=== PATIENT | male | born 1945 | race Caucasian/White ===

== ENCOUNTER 2017-08-05 10:04 | Emergency (ER) | payer MEDICARE, MEDICAID ==
[~2017-08-05] VITALS: Ht 160 cm; Wt 60.0 kg
[~2017-08-05 10:04] MED LIST: AMOXICILLIN500 MG PO; ATORVASTATIN CA40 MG PO; CEPHALEXIN500 MG PO; CIPROFLOXACN500 MG PO; FLAGYL500 MG PO; IBUPROFEN200 MG PO; LEVOTHYROXIN50 MC1 PO; LEVOTHYROXIN75 MC1 PO; LISINOP/HCTZ1 TAB PO; MEDDOSEPAK PO; NO; PERCOCET 5/325M1 TAB PO; PLAVIX75 MG PO; TAMSULOSIN HCL0.4 MG PO; VENTOLIN HF1 IN; VITAMIN B-121000 MCG PO; ZOFRAN ODT8 MG SL
[2017-08-05 10:56] LABS: URINE BILIRUBIN - DIPSTICK NEGATIVE (NEGATIVE); URINE BLOOD DIPSTICK NEGATIVE (NEGATIVE); URINE CLARITY CLEAR; URINE COLOR YELLOW; URINE GLUCOSE - DIPSTICK NEGATIVE (NEGATIVE); URINE KETONE NEGATIVE (NEGATIVE); URINE LEUK ESTERASE TRACE (NEGATIVE); URINE NITRITE - DIPSTICK NEGATIVE (Negative); URINE PROTEIN - DIPSTICK NEGATIVE (NEG-TRACE)
[2017-08-05 11:00] LABS: ALBUMIN 4.4 g/dL (3.2-5.0); ALKALINE PHOSPHATASE 90 u/l (38-126); ANION GAP 17 (6-22 (CALC)); BILIRUBIN, TOTAL 1.1 mg/dL (0.0-1.4); BUN 15 mg/dL (8-23); BUN/CREATININE RATIO 10 (12-20 (CALC)); CARBON DIOXIDE 23 mmol/l (22-30); CHLORIDE 105 mmol/l (95-108); CREATININE 1.5 mg/dL (0.7-1.3); GFR 46 ML/MIN (>=60 (CALC)); GFR FOR AFR.AMER. 56 ML/MIN (>=60 (CALC)); GLUCOSE 100 mg/dL (82-115); POTASSIUM 3.8 mmol/l (3.5-5.1); SGOT/AST 22 u/l (19-48); SGPT/ALT 33 u/l (11-66); SODIUM 141 mmol/l (137-146); TOTAL PROTEIN 8.1 g/dL (6.3-8.2)
[2017-08-05 11:08] LABS: HEMATOCRIT 48.2 % (39.0-50.0); HEMOGLOBIN 16.7 g/dl (14.0-18.0); IMMATURE GRANULOCYTES 1.2 % (0.0-1.0); MEAN CELL VOLUME 88.8 fL CALC (80.0-100.0); MEAN CORPUSCULAR HGB 30.8 pG CALC (26.0-32.0); MEAN CORPUSCULAR HGB CONC 34.6 g/L CALC (32.0-36.0); NEUT# 5.87 thou/uL (1.82-7.42); RED BLOOD COUNT 5.43 mill/uL (4.70-6.10); RED CELL DISTRI WIDTH 13.1 % (11.5-15.5)
[2017-08-05 11:10] LABS: BARBITURATES NEGATIVE (NEGATIVE); COCAINE NEGATIVE (NEGATIVE); METHADONE NEGATIVE (NEGATIVE); OXCYCODONE NEGATIVE (NEGATIVE); TETRAHYDROCANNABIONOL NEGATIVE (NEGATIVE); TRICYLIC ANTIDEPRESSANTS NEGATIVE (NEGATIVE)
[2017-08-05 11:12] LABS: MYOGLOBIN 89 ng/mL (0 - 121)
[2017-08-05] MEDS ORDERED: MUCINEX600 MG PO (15:48)
[2017-08-05] MEDS ORDERED: DOXYCYC MONO100 M1 PO (15:48)
[2017-08-05 15:54] VITALS: BP 164/85
== END 2017-08-05 16:06 | disposition home or self-care (01) ==
LOC: ED 10:04
PROVIDERS: Emergency Medicine
DX: T67.5XXA Heat exhaustion, unspecified, initial encounter (principal); J20.9 Acute bronchitis, unspecified; I10 Essential (primary) hypertension; F79 Unspecified intellectual disabilities; I69.931 Monoplegia of upper limb following unspecified cerebrovascular disease affecting right dominant side; X30.XXXA Exposure to excessive natural heat, initial encounter

== ENCOUNTER 2017-08-11 21:44 | Emergency (ER) | payer MEDICARE, MEDICAID ==
[~2017-08-11] VITALS: Ht 160 cm; Wt 60.0 kg
[~2017-08-11 21:44] MED LIST changes: +DOXYCYC MONO100 M1 PO; +MUCINEX600 MG PO
[2017-08-11 22:35] LABS: HEMATOCRIT 46.3 % (39.0-50.0); HEMOGLOBIN 15.3 g/dl (14.0-18.0); IMMATURE GRANULOCYTES 0.7 % (0.0-1.0); MEAN CELL VOLUME 91.9 fL CALC (80.0-100.0); MEAN CORPUSCULAR HGB 30.4 pG CALC (26.0-32.0); NEUT# 7.29 thou/uL (1.82-7.42); RED BLOOD COUNT 5.04 mill/uL (4.70-6.10); RED CELL DISTRI WIDTH 13.2 % (11.5-15.5)
[2017-08-11 22:48] LABS: ALBUMIN 3.8 g/dL (3.2-5.0); ALKALINE PHOSPHATASE 90 u/l (38-126); ANION GAP 13 (6-22 (CALC)); BILIRUBIN, TOTAL 1.1 mg/dL (0.0-1.4); BUN 15 mg/dL (8-23); BUN/CREATININE RATIO 10 (12-20 (CALC)); CALCIUM 8.7 mg/dL (8.4-10.2); CARBON DIOXIDE 27 mmol/l (22-30); CHLORIDE 105 mmol/l (95-108); CREATININE 1.4 mg/dL (0.7-1.3); GFR 50 ML/MIN (>=60 (CALC)); GFR FOR AFR.AMER. > 60 ML/MIN (>=60 (CALC)); GLUCOSE 94 mg/dL (82-115); POTASSIUM 3.8 mmol/l (3.5-5.1); SGOT/AST 21 u/l (19-48); SGPT/ALT 26 u/l (11-66); SODIUM 141 mmol/l (137-146); TOTAL PROTEIN 7.2 g/dL (6.3-8.2)
[2017-08-12 00:41] LABS: URINE BILIRUBIN - DIPSTICK NEGATIVE (NEGATIVE); URINE BLOOD DIPSTICK NEGATIVE (NEGATIVE); URINE CLARITY SLIGHT CLOUDY; URINE COLOR YELLOW; URINE GLUCOSE - DIPSTICK NEGATIVE (NEGATIVE); URINE KETONE NEGATIVE (NEGATIVE); URINE LEUK ESTERASE NEGATIVE (NEGATIVE); URINE NITRITE - DIPSTICK NEGATIVE (Negative); URINE PROTEIN - DIPSTICK NEGATIVE (NEG-TRACE)
[2017-08-12 01:00] VITALS: BP 145/66
[2017-08-12] MEDS ORDERED: ORPHENADRINE100 MG PO (03:29)
[2017-08-12] MEDS ORDERED: PERCOCET 5/325M1 TAB PO (03:29)
== END 2017-08-12 07:12 | disposition home or self-care (01) ==
LOC: ED 21:44
PROVIDERS: Emergency Medicine
DX: G89.29 Other chronic pain (principal); M54.5 Low back pain; N28.9 Disorder of kidney and ureter, unspecified; I10 Essential (primary) hypertension; R05 Cough; M62.830 Muscle spasm of back

== ENCOUNTER 2018-11-20 11:19 | Inpatient (IN) | payer MEDICARE, MEDICAID ==
[~2018-11-20] VITALS: Ht 162.6 cm; Wt 57.0 kg
[~2018-11-20 11:19] MED LIST changes: +ORPHENADRINE100 MG PO
--- NOTE | 2018-11-20 11:19 | NUR ---
BOARD MACHINE SET UP OPERATOR CALLED PRIOR TO CHECKING IN TO ER. PATIENT STATES INCREASED RIGHT SIDED WEAKNESS WITH MULTIPLE FALLS. PATIENT HAS MILD ASPHASIA, RIGHT UPPER EXREMITY ATAXIA AND SLIGHT INABILITY TO FOLLOW COMMANDS. PATIENT HAS HX OF CVA X2 AND DEVELOPMENTAL DELAY PER MEDICAL HX. PATIENT ALERT AND ORIENTED TIMES 3 AND PHYSICIAN AT BEDSIDE FOR EVAL
--- NOTE | 2018-11-20 11:23 | NUR ---
PT RESTING IN BED WITH EYES CLOSED. PT REMAINS AFEBRILE. DENIES ANY PAIN OR DISCOMFORT. IVF INFUSING WITHOUT DIFFICULTY. RETAIL PLANNER IN PLACE. CALL LIGHT WITHIN REACH. WILL CONTINUE TO MONITOR.
--- NOTE | 2018-11-20 11:25 | NUR ---
PT STATES HE STARTED TO FALL AND BLOCKED HIMSELF FROM HITTING FLOOR WITH HANDS, DENIES ANY BACK PAIN, DENIES ANY NECK PAIN, [facility] SCALE DONE BY STAFF WITH A 1
[2018-11-20 11:46] LABS: HEMATOCRIT 47.8 % (39.0-50.0); HEMOGLOBIN 16.2 g/dl (14.0-18.0); IMMATURE GRANULOCYTES 0.5 % (0.0-5.0); MEAN CELL VOLUME 89.2 fL CALC (80.0-100.0); MEAN CORPUSCULAR HGB 30.2 pG CALC (26.0-32.0); MEAN CORPUSCULAR HGB CONC 33.9 g/L CALC (32.0-36.0); NEUT# 5.77 thou/uL (1.82-7.42); RED BLOOD COUNT 5.36 mill/uL (4.70-6.10); RED CELL DISTRI WIDTH 13.2 % (11.5-15.5)
[2018-11-20 11:54] LABS: ANION GAP 14 (6-22 (CALC)); BUN 12 mg/dL (8-23); BUN/CREATININE RATIO 9 (12-20 (CALC)); CARBON DIOXIDE 24 mmol/l (22-30); CHLORIDE 106 mmol/l (95-108); CREATININE 1.4 mg/dL (0.7-1.3); GFR 50 ML/MIN (>=60 (CALC)); GFR FOR AFR.AMER. 60 ML/MIN (>=60 (CALC)); POTASSIUM 3.8 mmol/l (3.5-5.1); SODIUM 140 mmol/l (137-146)
--- NOTE | 2018-11-20 12:10 | NUR ---
negative ct scan result0
--- NOTE | 2018-11-20 13:02 | NUR ---
PTS [facility] SCALE REMAINS A ZERO, VITAL SIGNS STABLE, B/P 169/90, HR 78,
--- NOTE | 2018-11-20 14:38 | NUR ---
PT UNABLE TO REMEMBER ALL OF HIS MEDICATIONS OR DOSAGES.
--- NOTE | 2018-11-20 15:00 | NUR ---
PT ARRIVED ON FLOOR VIA W/C ACCOMPANIED BY GI[facility] ER STAFF; PT TRF FROM W/C TO BED WITH STEADY GAIT; VITALS OBTAINED BY AIR CONDITIONING TECHNICIAN; RESP EVEN AND UNLABORED; TELE IN PLACE; #20LAC S/L SITE APPEARS HEALTHY; PT ORIENT TO ROOM AND CALL WARD SYSTEM; SAFETY PRECAUTION REINFORCE; PT VERBALIZE UNDERSTANDING;
--- NOTE | 2018-11-20 15:06 | NUR ---
PT REPORT GIVEN AND TAKEN TO FLOOR PER W/C AND TELEMENTRY PT REMAINS ALERT/ORIENTED PER NORMAL FOR PT. NO NOTICEABLE WEAKNESS TO EITHER SIDE, TRANSFERRED ON OWN FROM W/C TO BED.
[2018-11-20 15:25] VITALS: BP 138/94
--- NOTE | 2018-11-20 16:58 | NUR ---
PT LAYING IN BED C/O BEING COLD, WARM BLANKET PROVIDED; PT VOICE NO OTHER CONCERNS; SAFETY PRECAUTION REINFORCE; CALL WARD IN REACH.
--- NOTE | 2018-11-20 18:46 | NUR ---
PT COMPLAINED OF BEING COLD; TEMP 101 TYMPANIC; CALLED [facility], ORDER UA, BLOOD CULTURE; WHEN THAT'S OBTAIN THEN TREAT TEMP WITH TYLENOL; FAX ORDER TO ; LAB AT BED SIDE TO OBTAIN BLOOD CULTURE; COOL WASH CLOTH APPLY TO FOREHEAD AND UNDERARM; PT INSTRUCTED TO CALL FOR ASSISTANCE;
[2018-11-20 19:00] VITALS: BP 116/78
--- NOTE | 2018-11-20 19:30 | NUR ---
REPORT FROM BERTHA RUGGIERO. PT RESTING IN BED. ALERT AND ORIENTED. STATES " I DON'T FEEL GOOD". PT TEMP 101.3. REMOVED HEAVY BLANKETS AND TURNED DOWN AIR. APAP ADMINISTERED AT THIS TIME. PT DENIES ANY PAIN. IV SITE APPEARS HEALTHY WITH IVF INFUSING WITHOUT DIFFICULTY. UA SAMPLE OBTAINED AND SENT TO LAB. DISCUSSED POC. PT VERBALIZED UNDERSTANDING. ENCOURAGED PT TO CALL FOR NEEDS. CALL LIGHT WITHIN REACH. WILL CONTINUE TO MONITOR.
[2018-11-20 21:37] LABS: URINE BILIRUBIN - DIPSTICK NEGATIVE (NEGATIVE); URINE BLOOD DIPSTICK LARGE (NEGATIVE); URINE COLOR YELLOW; URINE GLUCOSE - DIPSTICK NEGATIVE (NEGATIVE); URINE KETONE NEGATIVE (NEGATIVE); URINE LEUK ESTERASE NEGATIVE (NEGATIVE); URINE NITRITE - DIPSTICK NEGATIVE (Negative); URINE PH 6.5 (4.5-8.0); URINE PROTEIN - DIPSTICK NEGATIVE (NEG-TRACE); URINE SPECIFIC GRAVITY <=1.005; URINE UROBILINOGEN - DIPSTICK 0.2 E.U./dL (0.2)
[2018-11-20 21:41] LABS: URINE RBC TNTC RBC/hpf (0-5); URINE SQUAMOUS EPITHELIAL CELL FEW EPI/hpf (0-FEW)
--- NOTE | 2018-11-20 23:23 | NUR ---
PT RESTING IN BED WITH EYES CLOSED. PT REMAINS AFEBRILE. DENIES ANY PAIN OR DISCOMFORT. IVF INFUSING WITHOUT DIFFICULTY. DRILLING ASSISTANT IN PLACE. CALL LIGHT WITHIN REACH. WILL CONTINUE TO MONITOR.
[2018-11-20 23:55] VITALS: BP 98/62
[2018-11-21] VITALS (8 sets, daily range): BP systolic 95–130; BP diastolic 60–73
--- NOTE | 2018-11-21 03:26 | NUR ---
PT RESTING IN BED. EASILY AROUSED. PT SPILLED URINAL IN BED. LINENS CHANGED AND PARTIAL BED BATH PROVIDED AT THIS TIME. PT DENIES ANY PAIN. PT TEMP 99.8 AT THIS TIME. TURNED AIR DOWN. WILL CONTINUE TO MONITOR.
--- NOTE | 2018-11-21 07:05 | NUR ---
REPORT RECEIVED FROM BAHMAN ALBRIGHT;PT APPEARS TO BE RESTING IN SEMI FOWLERS POSITION;INTRODUCED SELF TO PT AND POC DISCUSSED;PT ALERT AND ORIENTED X3;RESPIRATIONS EVEN AND UNLABORED ON RA;TELE MONITORING IN PLACE;IV FLUIDS CONTINUE TO INFUSE WELL TO LAC;PT DENIES ANY CURRENT NEEDS AND IS ENCOURAGED TO CALL FOR ASSISTANCE IF NEEDED;FALL PRECAUTIONS IN PLACE WITH BED IN THE LOWEST POSITION AND CALL LIGHT IN REACH;WILL CONTINUE TO MONITOR
--- NOTE | 2018-11-21 09:10 | NUR ---
PT RESTING IN SEMI FOWLERS POSITION;ALERT AND ORIENTED X3;VS OBTAINED AND ASSESSMENT COMPLETED;PT DENIES ANY CURRENT PAIN OR DISCOMFORTS,PAIN SCALE AND REPORTING EDUCATED;RESPIRATIONS EVEN AND UNLABORED ON RA,CLEAR LUNG SOUNDS NOTED;ABDOMEN SOFT ON PALPATION AND ACTIVE IN ALL 4 QUADRANTS;STRONG PEDAL PULSES;#20G TO LAC INFUSING NS @ 80ML/HR,SITE APPEARS HEALTHY;TELE MONITORING IN PLACE;PT DENIES ANY CURRENT NEEDS AND IS ENCOURAGED TO CALL FOR ASSISTANCE IF NEEDED;CALL LIGHT IN REACH;WILL CONTINUE TO MONITOR
[2018-11-21 09:16] LABS: HEMATOCRIT 42.7 % (39.0-50.0); HEMOGLOBIN 14.4 g/dl (14.0-18.0); IMMATURE GRANULOCYTES 1.2 % (0.0-5.0); MEAN CELL VOLUME 91.2 fL CALC (80.0-100.0); MEAN CORPUSCULAR HGB 30.8 pG CALC (26.0-32.0); MEAN CORPUSCULAR HGB CONC 33.7 g/L CALC (32.0-36.0); NEUT# 24.68 thou/uL (1.82-7.42); RED BLOOD COUNT 4.68 mill/uL (4.70-6.10); RED CELL DISTRI WIDTH 13.7 % (11.5-15.5)
[2018-11-21 09:50] LABS: CHOLESTEROL HDL RATIO 2.4 (<4.4 (CALC))
[2018-11-21 09:51] LABS: CREATININE 1.4 mg/dL (0.7-1.3); MAGNESIUM 1.8 mg/dL (1.6-2.3); POTASSIUM 3.5 mmol/l (3.5-5.1)
--- NOTE | 2018-11-21 10:00 | NUR ---
FLU SWAB SENT TO LAB PER ORDER.
--- NOTE | 2018-11-21 11:01 | NUR ---
Spoke with patient about his listed home medications. Patient confirmed and verbalized that all of his home medications were correct. Patient had no questions or concerns at this time. Advised patient to contact pharmacy if he has any questions or concerns.
--- NOTE | 2018-11-21 12:15 | NUR ---
PT APPEARS TO BE SLEEPING IN SEMI FOWLERS POSITION;RESPIRATIONS EVEN AND UNLABORED ON RA;NO S/S OF DISTRESS NOTED;TELE MONITORING IN PLACE;IV FLUIDS CONTINUE TO INFUSE TO RAC WITH EASE;FALL PRECAUTIONS IN PLACE WITH CALL LIGHT IN REACH;WILL CONTINUE TO MONITOR
--- NOTE | 2018-11-21 14:16 | NUR ---
ORTHOSTATIC BP PRESSURES OBTAINED BP SUPINE 115/69 HR 69.SITTING 114/63 HR 82. STANDING 125/73 HR 88.
--- NOTE | 2018-11-21 15:24 | NUR ---
PT TRANSFERRED TO [facility] VIA WHEELCHAIR IN STABLE CONDITION.
--- NOTE | 2018-11-21 15:44 | NUR ---
PT ARRIVED BACK TO FLOOR VIA WHEELCHAIR IN STABLE CONDITION.
--- NOTE | 2018-11-21 16:20 | NUR ---
PT RESTING IN SEMI FOWLERS POSITION;PT DENIES ANY CURRENT PAIN;RESPIRATIONS EVEN AND UNLABORED ON RA;IV FLUIDS CONTINUE TO INFUSE TO LAC @ 80ML/HR WITH EASE;TELE MONITORING IN PLACE;PT EDUCATED ON THE NEED FOR A SPUTUM SAMPLE AND VERBALIZES UNDERSTANDING;ENCOURAGED PT TO CALL FOR ASSISTANCE IF NEEDED;FALL PRECAUTIONS IN PLACE WITH CALL LIGHT IN REACH;WILL CONTINUE TO MONITOR
--- NOTE | 2018-11-21 19:24 | NUR ---
BEDSIDE REPORT RECEIVED FROM BAHMAN MONTERROSO. PT RESTING IN BED WITH EYES CLOSED AND LIGHTS OFF. AWAKENED SPONTANEOUSLY FOR INITIAL VS. DENIES PAIN. RESPIRATIONS EVEN AND UNLABORED ON ROOM AIR. PLAN OF CARE REVIEWED. PT ENCOURAGED TO VERBALIZE CONCERNS. STATES UNDERSTANDING. SAFETY MEASURES IN PLACE. CALL LIGHT WITHIN REACH.
[2018-11-22] VITALS (10 sets, daily range): BP systolic 107–153; BP diastolic 64–98
--- NOTE | 2018-11-22 00:40 | NUR ---
PT ASLEEP AT THIS TIME WITH NO SIGNS OF DISTRESS. RESPIRATIONS EVEN AND UNLABORED ON ROOM AIR. IV FLUIDS INFUSING WITHOUT DIFFICULTY; IV SITE APPEARS HEALTHY. PT REMAINS ONE PERSON ASSIST AND AMBUALTORY. VS STABLE. SAFETY MEASURES IN PLACE. CALL LIGHT WITHIN REACH.
--- NOTE | 2018-11-22 02:58 | NUR ---
PT AWAKE WITH LIGHT ON. ONLY REQEUST IS FOR SODA. NO CONCERNS AT THIS TIME.
--- NOTE | 2018-11-22 05:16 | NUR ---
IV DISLODGED AND NEW SITE STARTED TO RFA; PT TOLERATED WELL. NO ACUTE CHANGED IN CONDITION THROUGHOUT THE NIGHT. NO REQUESTS OR CONCERNS AT THIS TIME. SAFETY MEASURES IN PLACE. CALL LIGHT WITHIN REACH.
[2018-11-22 05:38] LABS: HEMATOCRIT 40.3 % (39.0-50.0); HEMOGLOBIN 13.5 g/dl (14.0-18.0); IMMATURE GRANULOCYTES 0.5 % (0.0-5.0); MEAN CELL VOLUME 92.2 fL CALC (80.0-100.0); MEAN CORPUSCULAR HGB 30.9 pG CALC (26.0-32.0); MEAN CORPUSCULAR HGB CONC 33.5 g/L CALC (32.0-36.0); NEUT# 11.81 thou/uL (1.82-7.42); RED BLOOD COUNT 4.37 mill/uL (4.70-6.10); RED CELL DISTRI WIDTH 13.7 % (11.5-15.5)
[2018-11-22 05:50] LABS: ANION GAP 10 (6-22 (CALC)); BUN 15 mg/dL (8-23); BUN/CREATININE RATIO 11 (12-20 (CALC)); CARBON DIOXIDE 25 mmol/l (22-30); CHLORIDE 108 mmol/l (95-108); CREATININE 1.3 mg/dL (0.7-1.3); GFR 54 ML/MIN (>=60 (CALC)); GFR FOR AFR.AMER. > 60 ML/MIN (>=60 (CALC)); SODIUM 139 mmol/l (137-146)
--- NOTE | 2018-11-22 07:00 | NUR ---
REPORT RECIEVED FROM OSVALDO WISE. PT RESTING IN BED, NO SIGNS OR SYMPTOMS OF DISTRESS. SAFETY PRECAUTIONS IN PLACE. WILL CONTINUE TO MONITOR.
--- NOTE | 2018-11-22 08:00 | NUR ---
PT RESTING IN BED. ALERT AND ORIENTED. VITAL SIGNS OBTAINED AND ASSESSMENT COMPLETED. PT DENIES ANY PAIN OR DISCOMFORT. RESPIRATIONS EVEN AND UNLABORED ON ROOM AIR. LUNGS SOUND CLEAR. TELE MONITORING IN PLACE. IV # 20 TO THE RT FOREARM, INFUSING NS 80ML/HR, SITE APPEARS HEALTHY. PEDAL PULSES STRONG. PT ENCOURAGED TO USE CALL WARD IF NEEDS SHOULD ARISE. SAFETY PRECAUTIONS IN PLACE. CALL LIGHT WITHIN REACH. WILL CONTINUE TO MONITOR.
--- NOTE | 2018-11-22 09:24 | NUR ---
PT AMBULATING THE HALLWAYS WITH A STEADY GAIT AND PHYSICAL THERAPY.
--- NOTE | 2018-11-22 12:06 | NUR ---
PATIENT STATING THAT HE NO LONGER WANTS TO GO TO REHAB. HE REPORTS THAT HE HAS PNEUMONIA AND DID NOT HAVE A STROKE. HE IS FEELING MORE LIKE HIS NORMAL SELF TODAY AND IS ABLE TOAMB IN ROOM INDEP. GT ASSESSED AMB WITHOUT A.D. 150 WITH GOOD BALANCE AND IMPROVED STEP LENNGTH AND HEIGHT. PATIENT WILL BE SAFE TO RETURN HOME AND NO FURTHER P.T. INTERVENTION IS INDICATED. WILL ONLY MONITOR IF ANY CHANGES IN STATUS.
--- NOTE | 2018-11-22 12:30 | NUR ---
DR VELEZ AT PT BEDSIDE DISCUSSING PLAN OF CARE.
--- NOTE | 2018-11-22 14:19 | NUR ---
PT SITTING ON THE SIDE ON THE BED. NO SIGNS OR SYMPTOMS OF DISTRESS. NO COMPLAINTS OF PAIN OR DISCOMFORT. SAFETY PRECAUTIONS IN PLACE. CALL LIGHT WITHIN REACH. WILL CONTINUE TO MONITOR.
--- NOTE | 2018-11-22 16:00 | NUR ---
PT RESTING IN BED, NO SIGNS OR SYMPTOMS OF DISTRESS. SAFETY PRECAUTIONS IN PLACE. CALL LIGHT WITHIN REACH. WILL CONTINUE TO MONITOR.
--- NOTE | 2018-11-22 21:05 | NUR ---
ASSESSMENT IS COMPLETED: PT IS RELAXING IN BED WITH NO DISTRESS NOTED. IV SITE IS FREE FROM REDNESS OR EDEMA. HR IS REG,PULSES ARE STRONG X4, ABD IS SOFT WITH ACTIVE BS. TELE MONITOR IN PLACE. CONTINUE TO OBSERVE AND MONITOR.
--- NOTE | 2018-11-22 22:15 | NUR ---
PT TOOK TELE MONITOR OFF , NOT WANTING BACK ON. INFORMING THE DR TO SEE IF WE CAN GET IT DISCONTNUED.
--- NOTE | 2018-11-22 22:21 | NUR ---
STATED" CAN DISCONTINUE THE TELE MONITOR. "
--- NOTE | 2018-11-23 | NUR ---
PT IS RESTING IN BED WITH NO DISTRESS NOTED. IV SITE IS FREE FROM REDNESS OR EDEMA. NO TELE AT THIS TIME.
[2018-11-23 04:30] VITALS: BP 138/83
[2018-11-23 04:35] VITALS: BP 146/90
[2018-11-23 04:40] VITALS: BP 153/98
--- NOTE | 2018-11-23 04:45 | NUR ---
PT IS RELAXING IN BED WITH NO DISTRESS NOTED. IV SITE IS FREE FROM REDNESS OR EDEMA.
[2018-11-23 05:43] LABS: ALBUMIN 3.3 g/dL (3.2-5.0); ALKALINE PHOSPHATASE 79 u/l (38-126); ANION GAP 11 (6-22 (CALC)); BILIRUBIN, TOTAL 0.5 mg/dL (0.0-1.4); BUN 13 mg/dL (8-23); BUN/CREATININE RATIO 12 (12-20 (CALC)); CARBON DIOXIDE 25 mmol/l (22-30); CHLORIDE 108 mmol/l (95-108); CREATININE 1.1 mg/dL (0.7-1.3); GFR > 60 ML/MIN (>=60 (CALC)); GFR FOR AFR.AMER. > 60 ML/MIN (>=60 (CALC)); MAGNESIUM 2.2 mg/dL (1.6-2.3); POTASSIUM 3.9 mmol/l (3.5-5.1); SGOT/AST 26 u/l (19-48); SODIUM 140 mmol/l (137-146); TOTAL PROTEIN 6.4 g/dL (6.3-8.2)
[2018-11-23 05:45] LABS: HEMATOCRIT 43.9 % (39.0-50.0); IMMATURE GRANULOCYTES 0.5 % (0.0-5.0); MEAN CELL VOLUME 89.8 fL CALC (80.0-100.0); MEAN CORPUSCULAR HGB 30.7 pG CALC (26.0-32.0); MEAN CORPUSCULAR HGB CONC 34.2 g/L CALC (32.0-36.0); NEUT# 6.46 thou/uL (1.82-7.42); RED BLOOD COUNT 4.89 mill/uL (4.70-6.10); RED CELL DISTRI WIDTH 13.6 % (11.5-15.5)
--- NOTE | 2018-11-23 07:00 | NUR ---
REPORT RECIVED FROM BAHMAN STEEN. PT RESTING BED, NO SIGNS OR SYMPTOMS OF DISTRESS. SAFETY PRECAUTIONS IN PLACE. WILL CONTINUE TO MONITOR.
[2018-11-23 08:00] VITALS: BP 135/82
--- NOTE | 2018-11-23 08:00 | NUR ---
PT SITTING IN RECLINER AT BEDSIDE. ALERT AND ORIENTED. VS OBTAINED AND ASSESSMENT COMPLETED. RESPIRATIONS EVEN AND UNLABORED, ON RA. LUNGS SOUND CLEAR. PEDAL PULSES STRONG. SKIN INTACT. IV #20 IN RT FOREARM, APPEARS HEALTHY. PT DENIES ANY PAIN OR DISCOMFORT AT THIS TIME. SAFETY PRECAUTIONS IN PLACE. CALL LIGHT WITHIN REACH. WILL CONTINUE TO MONITOR.
--- NOTE | 2018-11-23 12:00 | NUR ---
PT RESTING IN BED. NO SIGNS OR SYMPTOMS OF DISTRESS. RESPIRATIONS EVEN AND UNLABORED, ON RA. NO SIGNS OR SYMPTOMS OF DISTRESS. SAFETY PRECAUTIONS IN PLACE. CALL LIGHT WITHIN REACH. WILL CONTIUE TO MONITOR.
[2018-11-23] MEDS ORDERED: DOXYCYCL HYC100 MG PO (13:57)
--- NOTE | 2018-11-23 14:45 | NUR ---
PT EDUCATED ON HOME HEALTH ORDER FOR DISCHARGE, PT REFUSED HOME HEALTH.
--- NOTE | 2018-11-23 15:00 | NUR ---
Discharge instructions given. Patient verbalizes understanding of same. Discharged in stable condition via Wheelchair to Home with *Other. All belongings sent with pt. Pt reported that he wanted to walk home. Nurse informed that we could call a ride for him or get a taxi set up for discharge. Pt refused and insisted he walk home which was approx a block away.Pt transported to [facility] via wheelchair in stable condition accompanied by volunteer.
== END 2018-11-23 15:07 | disposition home or self-care (01) | DRG 194 ==
LOC: ED 11:19 → ED-I 13:19 → MS2 13:30 → ED 13:30 → MS2 13:30
PROVIDERS: Family Medicine; Internal Medicine Nephrology; Nurse Practitioner Family; ADMIT Internal Medicine; ATTEND Internal Medicine
DX: J18.9 Pneumonia, unspecified organism (principal); I69.951 Hemiplegia and hemiparesis following unspecified cerebrovascular disease affecting right dominant side; I16.0 Hypertensive urgency; I12.9 Hypertensive chronic kidney disease with stage 1 through stage 4 chronic kidney disease, or unspecified chronic kidney disease; N18.3 Chronic kidney disease, stage 3 (moderate); E78.5 Hyperlipidemia, unspecified; I69.918 Other symptoms and signs involving cognitive functions following unspecified cerebrovascular disease; N40.0 Benign prostatic hyperplasia without lower urinary tract symptoms; Z23 Encounter for immunization; Z87.891 Personal history of nicotine dependence
CPT/HCPCS: G0378; J1650

== ENCOUNTER 2020-05-06 15:37 | Emergency (ER) | payer MEDICARE, MEDICAID ==
[~2020-05-06] VITALS: Ht 162.6 cm; Wt 70.0 kg
[~2020-05-06 15:37] MED LIST changes: +DOXYCYCL HYC100 MG PO
[2020-05-06 16:14] LABS: HEMATOCRIT 38.6 % (39.0-50.0); HEMOGLOBIN 13.1 g/dl (14.0-18.0); IMMATURE GRANULOCYTES 0.6 % (0.0-5.0); MEAN CORPUSCULAR HGB 32.4 pG CALC (26.0-32.0); MEAN CORPUSCULAR HGB CONC 33.9 g/dL CAL (32.0-36.0); NEUT# 7.05 thou/uL (1.82-7.42); RED BLOOD COUNT 4.04 mill/uL (4.70-6.10); RED CELL DISTRI WIDTH 14.6 % (11.5-15.5)
[2020-05-06 16:16] LABS: MEAN CELL VOLUME 95.5 fL CALC (80.0-100.0)
[2020-05-06 16:32] LABS: ALKALINE PHOSPHATASE 85 u/l (38-126); AMYLASE 40 u/l (30-110); ANION GAP 11 (6-22 (CALC)); BUN 13 mg/dL (8-23); BUN/CREATININE RATIO 10 (12-20 (CALC)); CARBON DIOXIDE 24 mmol/l (22-30); CHLORIDE 102 mmol/l (95-108); CREATININE 1.4 mg/dL (0.7-1.3); GFR 50 ML/MIN (>=60 (CALC)); GFR FOR AFR.AMER. 60 ML/MIN (>=60 (CALC)); LIPASE 125 u/l (23-300); POTASSIUM 3.4 mmol/l (3.5-5.1); SGOT/AST 28 u/l (19-48); SODIUM 134 mmol/l (137-146); TOTAL PROTEIN 7.4 g/dL (6.3-8.2)
[2020-05-06 16:41] LABS: BILIRUBIN, TOTAL 1.4 mg/dL (0.0-1.4)
[2020-05-06 16:44] LABS: MYOGLOBIN 144 ng/mL (0 - 121)
[2020-05-06 17:08] LABS: URINE BILIRUBIN - DIPSTICK NEGATIVE (NEGATIVE); URINE BLOOD DIPSTICK NEGATIVE (NEGATIVE); URINE COLOR YELLOW; URINE GLUCOSE - DIPSTICK NEGATIVE (NEGATIVE); URINE KETONE NEGATIVE (NEGATIVE); URINE LEUK ESTERASE TRACE (NEGATIVE); URINE PROTEIN - DIPSTICK NEGATIVE (NEG-TRACE)
[2020-05-06 17:10] LABS: URINE NITRITE - DIPSTICK POSITIVE (Negative)
[2020-05-06 17:22] LABS: URINE BACTERIA FEW hpf; URINE RBC 0-2 RBC/hpf (0-5); URINE WBC 0-2 WBC/hpf (0-5)
[2020-05-06] MEDS ORDERED: ONDANSETRON4 MG PO (19:30)
[2020-05-06 19:38] VITALS: BP 149/71
== END 2020-05-06 19:46 | disposition home or self-care (01) ==
LOC: ED 15:37
PROVIDERS: Emergency Medicine
DX: U07.1 COVID-19 (principal); K80.20 Calculus of gallbladder without cholecystitis without obstruction; I10 Essential (primary) hypertension; F79 Unspecified intellectual disabilities; Z86.73 Personal history of transient ischemic attack (TIA), and cerebral infarction without residual deficits

== ENCOUNTER 2020-05-13 16:31 | Inpatient (IN) | payer MEDICARE, MEDICAID ==
[~2020-05-13] VITALS: Ht 162.6 cm; Wt 50.0 kg
[~2020-05-13 16:31] MED LIST changes: +ONDANSETRON4 MG PO
--- NOTE | 2020-05-13 16:35 | NUR ---
PT TO ROOM VIA EMS STRETCHER.
--- NOTE | 2020-05-13 16:50 | NUR ---
PATIENT PLACED ON 8L NC. 2ND IV SITE INITIATED AND LABS AND BC X2 COLLECTED. PT TOLERATED WELL. WET, WEAK COUGH NOTED.
[2020-05-13 17:15] LABS: HEMATOCRIT 38.2 % (39.0-50.0); HEMOGLOBIN 13.2 g/dl (14.0-18.0); IMMATURE GRANULOCYTES 1.8 % (0.0-5.0); MEAN CELL VOLUME 93.4 fL CALC (80.0-100.0); MEAN CORPUSCULAR HGB 32.3 pG CALC (26.0-32.0); MEAN CORPUSCULAR HGB CONC 34.6 g/dL CAL (32.0-36.0); NEUT# 12.7 thou/uL (1.82-7.42); RED BLOOD COUNT 4.09 mill/uL (4.70-6.10); RED CELL DISTRI WIDTH 13.9 % (11.5-15.5)
--- NOTE | 2020-05-13 17:15 | NUR ---
PT HAS DRIED FECES TO LOWER EXTREMITIES AND PANTS. PT REMAINS IN HIGH FOWLERS POSITION. SPO2 ON 96% ON 8L NC.
--- NOTE | 2020-05-13 17:40 | NUR ---
PT INCONTINUENT OF URINE. PT CLEANED AND LINENS CHANGED. LABS DRAWN. PT LYING ON LEFT SIDE, SPO2 99% ON 8L. O2 TITRATED DOWN TO 6L NC.
[2020-05-13 18:08] LABS: ALBUMIN 3.5 g/dL (3.2-5.0); ALKALINE PHOSPHATASE 104 u/l (38-126); ANION GAP 12 (6-22 (CALC)); BILIRUBIN, TOTAL 1.8 mg/dL (0.0-1.4); BUN 24 mg/dL (8-23); BUN/CREATININE RATIO 16 (12-20 (CALC)); CARBON DIOXIDE 23 mmol/l (22-30); CHLORIDE 100 mmol/l (95-108); CREATININE 1.5 mg/dL (0.7-1.3); GFR 46 ML/MIN (>=60 (CALC)); GFR FOR AFR.AMER. 56 ML/MIN (>=60 (CALC)); LIPASE 76 u/l (23-300); POTASSIUM 3.8 mmol/l (3.5-5.1); SODIUM 131 mmol/l (137-146)
[2020-05-13 18:21] LABS: C-REACTIVE PROTEIN > 27.0 mg/dL (0-0.9); SGOT/AST 50 u/l (19-48)
--- NOTE | 2020-05-13 18:45 | NUR ---
PATIENT REPORT TO OSVALDO LOPEZ
[2020-05-13 19:00] VITALS: BP 132/72
--- NOTE | 2020-05-13 19:03 | NUR ---
RESTING COMFORTABLY WATCHING TV. IV COMPLETED.
[2020-05-13 20:00] VITALS: BP 122/70
--- NOTE | 2020-05-13 20:50 | NUR ---
RESTING COMFORTABLY AWAITING BED ASSIGNMENT. NAD.
[2020-05-13 21:00] VITALS: BP 129/75
--- NOTE | 2020-05-13 21:43 | NUR ---
ADMISSION ASSESSMENT COMPLETED SEE INTERVENTIONS, NO COMPLAINTS OFFERED AT THIS TIME, IV ACCESS INTACT, SOB WITH EXERTION, SKIN INTACT O2 ON AT 6L VIA NC, WITH DIMINSHED LUNG SOUNDS, COARSE COUGH NON PRODUCTIVE, PT HAS HISTORY OF OLD CVA'S WITH R SIDED DEFICITS NOTED. PT INDEPENDEDNT WITH CARE AT HOME COMFORT MEASURES PROVIDED WITH CALL WARD WITHIN REACH.
[2020-05-13 22:00] VITALS: BP 120/72
--- NOTE | 2020-05-13 22:22 | NUR ---
PT HAS REMOVED OXYGEN. COUNSELED ON THE NEED FOR HIS O2.
[2020-05-13 23:00] VITALS: BP 130/72
--- NOTE | 2020-05-13 23:00 | NUR ---
RESTING QUIETLY VSS. NAD.
[2020-05-14] VITALS (15 sets, daily range): BP systolic 105–157; BP diastolic 55–90
--- NOTE | 2020-05-14 00:28 | NUR ---
UPDATE GIVEN TO DR. DIAS VIA PHONE. PT RESTING QUIETLY. NAD. VSS.
[2020-05-14 01:02] LABS: URINE BILIRUBIN - DIPSTICK NEGATIVE (NEGATIVE); URINE BLOOD DIPSTICK SMALL (NEGATIVE); URINE COLOR YELLOW; URINE GLUCOSE - DIPSTICK NEGATIVE (NEGATIVE); URINE KETONE NEGATIVE (NEGATIVE); URINE LEUK ESTERASE NEGATIVE (NEGATIVE); URINE NITRITE - DIPSTICK NEGATIVE (Negative); URINE PH 6.5 (4.5-8.0); URINE PROTEIN - DIPSTICK TRACE mg/dL (NEG-TRACE)
[2020-05-14 01:21] LABS: URINE BACTERIA FEW hpf; URINE EPITHELIAL CELLS FEW EPI/hpf (0-FEW); URINE MUCUS MODERATE hpf (NONE-FEW); URINE WBC 0-2 WBC/hpf (0-5)
[2020-05-14 01:22] LABS: URINE YEAST FEW hpf
--- NOTE | 2020-05-14 02:25 | NUR ---
TO ROOM 1 VIA STRETCHER FROM ER. ON AIRBORNE PRECAUTIONS
--- NOTE | 2020-05-14 02:25 | NUR ---
RECEIVED FROM ER VIA STRETCHER TO ICU BED 1. AMBULATED FROM STRETCHER TO BED. STABLE STANCE AND GAIT. RESP DYSPNEIC WITH EXERTION. O2 SAT 93% ON O2 AT 5 L NC. BREATH SOUNDS ESSENTIALLY CLEAR, DIMINISHED THROUGHOUT LUNG PANTOJA. OCC DRY COUGH. SALINE LOCK IN LFA (EMS STICK) AND RAC, BOTH SITES BENIGN. MEDICAL REIMBURSEMENT SPECIALIST SHOWS SR. SHIFT ASSESSMENT COMPLETED. DENIES NEEDS AT THIS TIME. CALL WARD IN REACH.
--- NOTE | 2020-05-14 02:30 | NUR ---
REPORT TO OSVALDO FUNG. TRANSPORTED TO ICU1.
--- NOTE | 2020-05-14 04:00 | NUR ---
RESTING QUIETLY IN BED. VSS. NO COMPLAINTS VOICED.
--- NOTE | 2020-05-14 04:50 | NUR ---
BLOOD DRAWN FOR AM LAB WORK VIA PERIPHERAL STICK.
[2020-05-14 05:33] LABS: HEMATOCRIT 40.8 % (39.0-50.0); MEAN CELL VOLUME 94.2 fL CALC (80.0-100.0); MEAN CORPUSCULAR HGB 32.3 pG CALC (26.0-32.0); MEAN CORPUSCULAR HGB CONC 34.3 g/dL CAL (32.0-36.0); NEUT# 13.23 thou/uL (1.82-7.42); RED BLOOD COUNT 4.33 mill/uL (4.70-6.10); RED CELL DISTRI WIDTH 13.7 % (11.5-15.5)
[2020-05-14 06:08] LABS: ALBUMIN 3.1 g/dL (3.2-5.0); ALKALINE PHOSPHATASE 123 u/l (38-126); ANION GAP 13 (6-22 (CALC)); BILIRUBIN, TOTAL 1.4 mg/dL (0.0-1.4); BUN 23 mg/dL (8-23); BUN/CREATININE RATIO 20 (12-20 (CALC)); CARBON DIOXIDE 21 mmol/l (22-30); CHLORIDE 105 mmol/l (95-108); CREATININE 1.2 mg/dL (0.7-1.3); GFR 59 ML/MIN (>=60 (CALC)); GFR FOR AFR.AMER. > 60 ML/MIN (>=60 (CALC)); POTASSIUM 4.2 mmol/l (3.5-5.1); SGOT/AST 45 u/l (19-48); SODIUM 135 mmol/l (137-146); TOTAL PROTEIN 6.5 g/dL (6.3-8.2)
--- NOTE | 2020-05-14 06:13 | NUR ---
NO CHANGES TO REPORT. RESTING QUIETLY IN BED. VSS. SR ON MONITOR.
[2020-05-14 06:42] LABS: C-REACTIVE PROTEIN 33.1 mg/dL (0-0.9)
--- NOTE | 2020-05-14 07:40 | NUR ---
PT RESTING IN BED, ALERT AND ORIENTED X4, MOVES ALL EXTREMITIES, AFEBRILE, LUNGS CLEAR/DIM. DENIES PAIN OR DISCOMFORT AT THIS TIME. BREAKFAST AT BEDSIDE.
--- NOTE | 2020-05-14 10:51 | NUR ---
PT DENIES PAIN OR DISCOMFORT AT THIS TIME, EDUCATED PT REGARDING KEEPING NASAL CANULA ON AND DEEP BREATHING. CALL LIGHT WITHIN REACH, WILL CONTINUE TO MONITOR.
--- NOTE | 2020-05-14 11:30 | NUR ---
LUNCH AT BEDSIDE, PT RESTING IN BED, DENIES PAIN OR DISCOMFORT AT THIS TIME. INCENTIVE SPIROMETER AT BEDSIDE AND PT EDUCATED REGARDING USE OF INCENTIVE SPIROMETER. INCREASED OXYGEN TO 6LT DUE TO SATS IN MID-HIGH 80'S. PT ALERT AND ORIENTEDX3, NOT UNDERSTANDING DEEP BREATHING TECHNIQUE. WILL CONTINUE TO MONITOR. CALL LIGHT WITHIN REACH.
--- NOTE | 2020-05-14 12:00 | NUR ---
PT RESTING IN BED, DENIES PAIN OR DISCOMFORT AT THIS TIME. PT ALERT AND ORIENTEDX3, MOVES ALL EXTREMITIES, AFEBRILE. LUNGS CLEAR/DIM, 6LT HIFLOW, DRY NON-PRODUCTIVE COUGH. ALL VSS PER MONITOR, WILL CONTINUE TO MONITOR.
--- NOTE | 2020-05-14 14:00 | NUR ---
PT RESTING IN BED, DENIES PAIN OR DISCOMFORT AT THIS TIME. ALL VSS STABLE PER THE MONITOR. WILL CONTINUE TO MONITOR.
--- NOTE | 2020-05-14 16:56 | NUR ---
PT RESTING IN BED, ALERT AND ORIENTED X3. DENIES PAIN OR DISCOMFORT AT THIS TIME, ALL VSS. CALL LIGHT WITHIN REACH. WILL CONTINUE TO MONITOR.
--- NOTE | 2020-05-14 19:35 | NUR ---
RESTING IN BED WITH EYES CLOSED. RESP NON-LABORED AT REST. O2 SAT 93% ON O2 6 L NC. MONITOR SR.
--- NOTE | 2020-05-14 20:35 | NUR ---
AWAKENS TO NAME. DENIES ANY PAIN OR DISCOMFORTS. RESP SHALLOW, NON-LABORED. O2 AT 6 L HF NC. LUNGS CLEAR, WITH DIMINISHED BREATH SOUNDS THROUGHOUT LUNG PANTOJA. SHIFT ASSESSMENT COMPLETED. SALINE LOCK IN LAC AND RAC, BOTH SITES BENIGN, FLUSHED AND PATENT. STEEL PAN FORM PLACING SUPERVISOR SHOWS SR. DISCUSSED PLAN OF CARE. DENIES NEEDS AT THIS TIME. CALL BEL IN REACH.
--- NOTE | 2020-05-14 22:00 | NUR ---
RESTING WITH EYES CLOSED. VSS. SR ON MONITOR.
--- NOTE | 2020-05-14 23:45 | NUR ---
ASLEEP ON ROUNDS. RESP SHALOW, NON-LABORED AT REST. O2 SAT 93% SR ON MONITOR.
[2020-05-15] VITALS (12 sets, daily range): BP systolic 103–140; BP diastolic 58–88
--- NOTE | 2020-05-15 04:20 | NUR ---
PATIENT AWAKENS TO NAME. BLOOD DRAWN FOR AM LABS ORDERED. PATIENT DENIES ANY PAIN OR DISCOMFORTS. STATES FEELING BETTER THIS MORNING.
[2020-05-15 04:58] LABS: HEMATOCRIT 37.7 % (39.0-50.0); IMMATURE GRANULOCYTES 3.3 % (0.0-5.0); MEAN CORPUSCULAR HGB 32.4 pG CALC (26.0-32.0); MEAN CORPUSCULAR HGB CONC 34.5 g/dL CAL (32.0-36.0); NEUT# 18.52 thou/uL (1.82-7.42); RED BLOOD COUNT 4.01 mill/uL (4.70-6.10); RED CELL DISTRI WIDTH 13.9 % (11.5-15.5)
[2020-05-15 05:26] LABS: ALKALINE PHOSPHATASE 98 u/l (38-126); ANION GAP 11 (6-22 (CALC)); BUN 25 mg/dL (8-23); BUN/CREATININE RATIO 23 (12-20 (CALC)); CARBON DIOXIDE 23 mmol/l (22-30); CHLORIDE 105 mmol/l (95-108); CREATININE 1.1 mg/dL (0.7-1.3); GFR > 60 ML/MIN (>=60 (CALC)); GFR FOR AFR.AMER. > 60 ML/MIN (>=60 (CALC)); POTASSIUM 4.3 mmol/l (3.5-5.1); SGOT/AST 38 u/l (19-48); SODIUM 134 mmol/l (137-146); TOTAL PROTEIN 5.9 g/dL (6.3-8.2)
[2020-05-15 05:27] LABS: BILIRUBIN, TOTAL 0.6 mg/dL (0.0-1.4)
--- NOTE | 2020-05-15 06:45 | NUR ---
RECIEVED REPORT FROM OSVALDO HEADLEY. ASSUMED PT CARE.
--- NOTE | 2020-05-15 07:30 | NUR ---
PT RESTING IN BED, A&OX3, ABLE TO MAKE NEEDS KNOWN. PT DENIES CP, OR DISTRESS. RESPIRATION SHALLOW, LS DIMINISHED THROUGHOUT. SA02@90% 6LPM VIA NC. ABDOMEN SOFT/TENDER.LBM 05/13. BSX4 ACTIVE. URINAL AT BEDSIDE WITH 100ML RAUL URINE. AFEBRILE. 20G RAC/SL, NO S/S OF INFILTRATION OR INFECTION NOTED AT SITE. CALL LIGHT IN REACH, WILL MONITOR.
--- NOTE | 2020-05-15 07:45 | NUR ---
DIETARY ON UNIT, BREAKFAST TRAY SET UP.
--- NOTE | 2020-05-15 08:15 | NUR ---
DR. DIAS AT BEDSIDE FOR ASSESSMENT AND TO DISCUSS PLAN OF CARE. NEW ORDERS RECIEVED.
--- NOTE | 2020-05-15 09:00 | NUR ---
PT ASSISTED TO PRONE POSITION. CALL LIGHT IN REACH. WILL MONITOR.
--- NOTE | 2020-05-15 09:10 | NUR ---
PT STATED HE IS UNABLE TO TOLERATED PRONE POSITION, DR. DIAS NOTIFIED. INCREASED O2 TO 10LPM HIGH FLOW. PT ASSIST BACK TO SUPINE WITH HOB UP.
--- NOTE | 2020-05-15 10:15 | NUR ---
PT INC, COMPLETE BED BATH, LINEN CHANGE DONE. PT SAT UP IN CHAIR, TOLERATED WELL. CALL LIGHT IN REACH. WILL MONITOR.
--- NOTE | 2020-05-15 11:30 | NUR ---
DIETARY ON UNIT. LUNCH TRAY SET UP.
--- NOTE | 2020-05-15 12:49 | NUR ---
PT RESTING IN BED, HOB UP. RESPIRATIONS EVEN/UNLABORED/SHALLOW, O2@10LPM VIA HF. CALL LIGHT IN REACH. WILL MONITOR.
--- NOTE | 2020-05-15 14:00 | NUR ---
PT ASSISTED WITH THE URINAL. NO DISTRESS NOTED AT THIS TIME. CALL LIGHT IN REACH. WILL MONITOR.
--- NOTE | 2020-05-15 16:30 | NUR ---
PT SITTING UP IN BED, WATCHING TV. CALL LIGHT IN REACH. WILL MONITOR.
--- NOTE | 2020-05-15 18:00 | NUR ---
PT RESTING IN BED. WATCHING TV, NO DISTRESS NOTED AT THIS TIME. CALL LIGHT IN REACH. WILL MONITOR.
--- NOTE | 2020-05-15 23:03 | NUR ---
RAC IV FLUSHED POST ANTIBIOTIOC INFUSION, INTACT. URINAL EMPTIED, PROVIDEC PATIENT WITH GATORADE. CALL LIGHT WITHIN REACH.
--- NOTE | 2020-05-15 23:34 | NUR ---
PT.'S O2 AT 84%. CHECKED ON PT AND HIS NASAL CANNULA WAS OFF OF HIS NOSE. PRT DOES NOT RECALL IF HE TOOK IT OFF, REMINDD HIM HE NEEDS THE O2 SUPPORT.NOW SATS 95% ON 8 L/MIN H FLOW. WITH HUMIDIFIER.
[2020-05-16] VITALS (9 sets, daily range): BP systolic 91–127; BP diastolic 57–89
--- NOTE | 2020-05-16 00:30 | NUR ---
PT'S BL WAS CHECKED. 1 UNIT INSULIN GIVEN, PT DID MOAN WHEN PROVIDING INSULIN ON SAADIA. NO OTHER NEEDS OR COMPLAINTS. CALL LIGHT WITHIN REACH.
--- NOTE | 2020-05-16 01:28 | NUR ---
PT HAD TAKEN HIS GOWN, TECHNICAL SALES ADVISOR, PULSE OX, NASAL CANNULA, BP CUFF OFF, HE WAS TRYING TO PUT HIS SWEAT PANTS ON, WHEN I ASKED HIM WHAT I COULD HELP WITH HIM, HE RESPNDED. "I CAN;'T DO THIS ANYMORE, I'M COLD." I ASSISTED WITH REPOSITIONING HIM, PLACING ALL MONITORS ON, SWEAT PANTS ON, GOWN BACK ON. PT WAS SHAKING, I ASKED IF HE WAS DRINKS ALCOHOL/BEER AT HOME, HE REPORTS HE DOES NOT, HE REPORTS HE IS JUST COLD. HEAT PACK APPLIED TO HAND WITH PULSE OX TO MAKE SURE READINGS ARE CORRET, PT O2 SAT WAS 86% on 8 L/MIN NC. TITRATED O2 TO 10 L/MIN, NOW SATS 90%. PT IS BREATHING SHALLOW AND 36 RPM. WILL CONTINUE TO MONITOR.
--- NOTE | 2020-05-16 03:48 | NUR ---
PT CONFUSED., PULLING MONITOR OFF. PT HAD AN INCONTINENT BM. WASHED HIM UP, NEW LINENS APPLIED TO BED. O2 WEANED TO 9 L/MIN. CALL LIGHT WITHIN REACH.
--- NOTE | 2020-05-16 05:42 | NUR ---
BLOOD DRAWN FOR LABS THIS AM. PT HAS LOW GRADE TEMP OF 99.8 AXILLARY, TYELNOL PROVIDED. PT ABLE TO SWALLOW, ICED WATER PROVIDED.
[2020-05-16 06:06] LABS: MAGNESIUM 2.6 mg/dL (1.6-2.3)
--- NOTE | 2020-05-16 06:45 | NUR ---
RECIEVED REPORT FROM OSVALDO GHOTRA. ASSUMED PT CARE.
--- NOTE | 2020-05-16 07:30 | NUR ---
PT RESTING IN BED, O2 OFF, REPLACED NC. PT VERY DROWSY, ALERT TO SELF AND PLACE. RESPIRATION EVEN/UNLABORED, SA02@87%RA, ONCE 02@8LPM VIA NC REPLACED SA02@94%. LS CLEAR/DIMINISHED THROUGHOUT. ABDOMEN SOFT, NON-TENDER, LBM 7-2-20. PT HAS EPISODES OF INC OF B&B. 20G RAC/SL FLUSHES WITHOUT DIFFICULTY, NO S/S OF INFILTRATION OR INFECTION NOTED AT SITE. CALL LIGHT IN REACH.
--- NOTE | 2020-05-16 08:00 | NUR ---
PT CONTINUES PULLING NC OFF AND PULLED SA02 LINE OUT OF MONITOR. PT REMAINS DROWSY, NEW ORDERS PLACED, RT AT BEDSIDE FOR ABG. DR. DIAS NOTIFIED OF RESULTS. WILL MONITOR.
--- NOTE | 2020-05-16 09:22 | NUR ---
DR DIAS @BEDSIDE FOR ASSESSMENT.
--- NOTE | 2020-05-16 09:25 | NUR ---
STROKE ALERT CALLED
--- NOTE | 2020-05-16 09:32 | NUR ---
ER @BEDSIDE W/NEURO TELE COMPLETING [facility].
--- NOTE | 2020-05-16 09:33 | NUR ---
TELESTROKE CART TO BEDSIDE. PT WITH LT PARTIAL GAZE DEVIATION, AGNOSIA, RT ARM AND HAND DRAWN UP TO BODY. RT UPPER EXTREMITY NEGLECT NOTED, SLIGHT RT FACIAL DROOP. ASSESSED BY TELE DR VIA TELESTROKE CART. SYMPTOMS ALMOST COMPLETEL;Y RESOLED BY 1010 DURING ASSESSMENT. NEUROLOGY RECOMMENDS CT, CTA HEADA ND NECK, MRI AND WILL DISCUSS WITH DR DIAS STROKE VS SEIZURE, RECOMMENDS KEPPRA FOR SEIZURE PRECAUTIONS AND STATES NOT A CANDIDATE FOR TPA CONSIDERING COVID DVT PROPHYLAXIS
--- NOTE | 2020-05-16 09:44 | NUR ---
LABS COLLECTED. NEURO ON TELE NOW.
[2020-05-16 09:49] LABS: HEMOGLOBIN 13.6 g/dl (14.0-18.0); MEAN CORPUSCULAR HGB 32.3 pG CALC (26.0-32.0); NEUT# 13.53 thou/uL (1.82-7.42); RED BLOOD COUNT 4.21 mill/uL (4.70-6.10)
[2020-05-16 10:03] LABS: ALBUMIN 3.4 g/dL (3.2-5.0); ALKALINE PHOSPHATASE 111 u/l (38-126); ANION GAP 9 (6-22 (CALC)); BILIRUBIN, TOTAL 0.6 mg/dL (0.0-1.4); BUN 27 mg/dL (8-23); BUN/CREATININE RATIO 23 (12-20 (CALC)); CARBON DIOXIDE 24 mmol/l (22-30); CHLORIDE 107 mmol/l (95-108); CREATININE 1.2 mg/dL (0.7-1.3); GFR 59 ML/MIN (>=60 (CALC)); GFR FOR AFR.AMER. > 60 ML/MIN (>=60 (CALC)); POTASSIUM 4.3 mmol/l (3.5-5.1); SODIUM 136 mmol/l (137-146); TOTAL PROTEIN 6.8 g/dL (6.3-8.2)
[2020-05-16 10:15] LABS: C-REACTIVE PROTEIN 12.6 mg/dL (0-0.9); SGOT/AST 67 u/l (19-48)
--- NOTE | 2020-05-16 10:15 | NUR ---
PT DOWN TO CT/CTA
--- NOTE | 2020-05-16 11:11 | NUR ---
PT RETURNS FROM CT
--- NOTE | 2020-05-16 11:30 | NUR ---
LABS DRAWN AT BEDSIDE. PT TOLERATED WELL CALL LIGHT IN REACH. WILL MONITOR.
--- NOTE | 2020-05-16 11:56 | NUR ---
16FR FREGOSO PLACED USING STERILE TECHNIQUE, IMMEDIATE URINE RETURN. PT TOLERATED WELL. CALL LIGHT IN REACH. WILL MONITOR.
--- NOTE | 2020-05-16 12:00 | NUR ---
COMPLETE BED BATH AND LINEN CHANGE DONE
--- NOTE | 2020-05-16 12:30 | NUR ---
PT TOOK NC OFF, REPLACED. PT EDUCATED ON LEAVING ON. WILL MONITOR CLOSELY.
--- NOTE | 2020-05-16 13:14 | NUR ---
PT AGAIN TOOK NASAL CANNULA . SA02@86RA, O2 REPLACED. WILL MONITOR.
--- NOTE | 2020-05-16 13:31 | NUR ---
PT FOUND AGAIN WITH NC OFF, RESECURED CHEIKH ONTIVEROS. WILL MONITOR.
--- NOTE | 2020-05-16 14:00 | NUR ---
PT TOOK OFF O2, REPLACED. WILL MONITOR.
--- NOTE | 2020-05-16 14:35 | NUR ---
PT TOOK OFF O2 AGAIN, DR. DIAS NOTIFIED. NEW ORDERS RECIEVED. WILL MONITOR.
--- NOTE | 2020-05-16 14:45 | NUR ---
NOTIFIED PT BROTHER NIKIA MESSER [phone] THAT PT WAS PLACED IN RESTRAINTS. NIKIA THEN ASKED IF I COULD ASK PT IF HE COULD WITHDRAWAL MONEY TO PAY RENT. THIS [employer]ICE CON[employer]CTOR SAID i COULD NOT ASK, I WILL REFER THIS TO CM. CUCA IN NOTIFIED AND WILL HANDLE FROM HERE. PT RESTING IN BED, RESTRAINTS IN PLACE. WILL MONITOR CLOSELY.
--- NOTE | 2020-05-16 16:34 | NUR ---
PT RESTING IN BED, RESPIRATIONS EVEN/UNLABORED. SA02@97%. WILL MONITOR.
--- NOTE | 2020-05-16 18:00 | NUR ---
PT REPOSITIONED, FREGOSO REMAINS PATENT, DRAINING TO BSD VIA GRAVITY. SA02@93%. WILL MONITOR.
--- NOTE | 2020-05-16 21:30 | NUR ---
pt rests with hob 30 degrees. pt assisted to pull him up by using his left leg. pt is currently in restraints, released for patient care, placed back on. afebrile, new iv placed, rac iv intact. antibiotics and keppra infuding intermittently. pt able to drink from his gatorade, did cough after drinking due to he was sipping from straw fast. pt on high flow nc at 10 l/min, sats 91%-93%. call light within reach.
--- NOTE | 2020-05-16 22:21 | NUR ---
CALLED AND SPOKE TO DR DIAS REGARDING PT FINDINGS WHILE ASSESSING. PT ABLE TO MOVE HIS RUE AND RLE BUT CANNOT LIFT, DR DIAS AWARE OF STROKE ALERT CALLED TODAY AND ALL CT TESTS THAT WERE DONE. NEW ORDER FOR MRI OF THE BRAIN IN THE MORNING. WILL CONTINUE TO MONITOR.
[2020-05-17] VITALS (10 sets, daily range): BP systolic 109–145; BP diastolic 61–93
--- NOTE | 2020-05-17 03:12 | NUR ---
pt releases himself from the soft wrist restraint on left wrist, pulls his gown off, attempts to pull park off and takes his nasal cannula off. o2 titrated to 12 l/min on high flow nc h. sats 94%. restraint safely placed [place] on. no acute distress shown.
--- NOTE | 2020-05-17 07:30 | NUR ---
pt resting in bed with eyes closed; no apparent distress noted; assessment completed at this time; pt moans when name is called; pt able to states name as "Antoine" otherwise nonverbal with this radio news writer; no n/v noted; no s/sx of pain noted; resp even and unlabored; lungs clear/ diminished; skin color wnl; o2 per nc at 12L high flow; no cough noted; hr reg; strong pulses; no edema noted; sr on monitor; abd soft with bs present; no bm noted per this radio news writer; park to gravity draining clear yellow urine; cath strap applied; #20 flushed and patent to rac; no redness or edema noted at site; restraints released and reapplied for nursing care; pt able to turn self to side and follow some instructions; pt able to follow commands with left extremities; call light within reach; oral care with toothette and swab; pt refusing po fluids; will continue to monitor
[2020-05-17 07:40] LABS: ALBUMIN 3.1 g/dL (3.2-5.0); ALKALINE PHOSPHATASE 106 u/l (38-126); ANION GAP 10 (6-22 (CALC)); BILIRUBIN, TOTAL 0.6 mg/dL (0.0-1.4); BUN 27 mg/dL (8-23); BUN/CREATININE RATIO 26 (12-20 (CALC)); CARBON DIOXIDE 24 mmol/l (22-30); CHLORIDE 111 mmol/l (95-108); GFR > 60 ML/MIN (>=60 (CALC)); GFR FOR AFR.AMER. > 60 ML/MIN (>=60 (CALC)); POTASSIUM 4.4 mmol/l (3.5-5.1); SGOT/AST 48 u/l (19-48); SODIUM 141 mmol/l (137-146); TOTAL PROTEIN 6.4 g/dL (6.3-8.2)
--- NOTE | 2020-05-17 08:05 | NUR ---
resting with eyes closed; responds appro to some questions; speech garbled; po fluids provided and declined; breakfast declined; sr on monitor; melter loader loose cough noted; o2 per nc at 12L; park to gravity; will continue to monitor
--- NOTE | 2020-05-17 08:25 | NUR ---
pt transferred to MRI via stretcher with portable o2 at 8L NC per this screen writer; screen writer remains with pt while in MRI; will continue to monitor
--- NOTE | 2020-05-17 09:15 | NUR ---
pt transferred back to ICU bed 1 via stretcher accompanied by this movie writer in stable condition; monitoring attachments reapplied; o2 sat noted at 84% on 7L; RT at bedside; o2 titrated; o2 now at 15L high flow NC; park to gravity; Dr Keane present at bedside; pt able to squeeze right hand and lift right leg; drift noted to right extremities; repositioned; will continue to monitor
--- NOTE | 2020-05-17 10:04 | NUR ---
pt awake in bed; o2 per nc at 15L; o2 sat 98%; sr on monitor; park to gravity; iv intact and patent; restraints released and reapplied for nursing care; call light within reach; will continue to monitor
--- NOTE | 2020-05-17 11:00 | NUR ---
pt noted with legs hanging off bed; pt has removed catheter strap; monitoring attachments reapllied; repositioned in bed; will continue to monitor
--- NOTE | 2020-05-17 12:20 | NUR ---
resting in bed with eyes closed; no apparent distress noted; easily aroused; offers no complaints; restraints released for nursing care adnd lunch; sr on monitor; park to gravity; call light within reach; will continue to monitor
--- NOTE | 2020-05-17 12:30 | NUR ---
pt has removed o2; o2 sats noted 74% on ra; pt pulling at park catheter; keno writer/runner in to assess pt; o2 reapplied; restraints reinforced; keno writer/runner at bedside to feed pt; will continue to monitor
--- NOTE | 2020-05-17 14:10 | NUR ---
awake in bed; pt has removed gown; pulling at park catheter; o2 per nc; sr on monitor; iv intact and patent; call light within reach; will continue to monitor
--- NOTE | 2020-05-17 15:19 | NUR ---
ZAYDA Reynoso called this conventional underwriter; OT will be in to assess pt after 1700; will continue to monitor
--- NOTE | 2020-05-17 15:50 | NUR ---
awake in bed; noted banging on table; in to assess pt; pt admits to needing help; pt unable to specify needs; repositioned per staff; o2 reapplied; iv intact and patent; no redness or edema noted at site; park cath strap reapplied; restraints reinforced; will continue to monitor
--- NOTE | 2020-05-17 17:57 | NUR ---
resting in bed with eyes closed; easily aroused; no apparent distress noted; resp even and unlabored; o2 per nc; park to gravity; iv intact; restraints released and reapplied for nursing care; typewriter assembly and parts inspector at bedside to feed pt; call light within reach
--- NOTE | 2020-05-17 19:45 | NUR ---
RESTING WITH EYES CLOSED. NOT DISTURBED AT THIS TIME. RESP NON-LABORD AT REST. CLINICAL STAFF ANESTHESIOLOGIST SHOWS SR.
--- NOTE | 2020-05-17 20:30 | NUR ---
RESTING WITH EYES CLOSED ON ROUNDS. OPENS EYES TO NAME. NODS HEAD TO YES AND NO QUESTIONS. NON-VERBAL- ASKED PATIENT TO SATE HIS NAME AND HE SHOOK HIS HEAD NO. MOVES LEFT EXTREMITIES. RIGHT SIDE FLACCID, NO RESPONSE TO PAINFUL OR TACTILE STIMULI. RESP NON-LABORED AT REST. O2 ON AT 12 L HF NC. BREATH SOUNDS DIMINISHED THROUGHOUT LUNG PANTOJA. SHIFT ASSESSMENT COMPLETED. SALINE LOCK IN RAC, FLUSHED AND PATENT, SITE BENIGN. EXPLAINED PLAN OF CARE. CALL WARD IN REACH.
--- NOTE | 2020-05-17 22:00 | NUR ---
ASSISTED PATIENT WITH CARTON POF APPLE JUICE. NO DIFFICULTY SWALLOWING. ASSISSTED WITH REPOSITIONING ONTO SIDE.
--- NOTE | 2020-05-17 23:00 | NUR ---
RESTLESS IN BED. ASSISTED PATIENT WITH REPOSITIONING. SUPPORT AND REASSURANCE PROVIDED.
--- NOTE | 2020-05-17 23:30 | NUR ---
PATIENTS BROTHER NIKIA PHONED IN FOR CONDITION UPDATE.
[2020-05-18] VITALS (12 sets, daily range): BP systolic 124–158; BP diastolic 72–87
--- NOTE | 2020-05-18 00:05 | NUR ---
RESTING WITH EYES CLOSED. RESP SHALLOW. SR ON MONITOR.
--- NOTE | 2020-05-18 02:30 | NUR ---
RESTLESS AT THIS TIME. LEGS OVER SIDE OF BED, PULLING AT FREGOSO AND LEG STRAP. CALMS TO VERBAL CUES.
--- NOTE | 2020-05-18 04:00 | NUR ---
DOZES FOR SHORT INTERVALS. VSS. SR ON MONITOR.
--- NOTE | 2020-05-18 06:00 | NUR ---
BLOOD DRAWN FOR LABS ORDERED. SALINE LOCK IN RAC, FLUSHED AND PATENT.
[2020-05-18 06:56] LABS: ALBUMIN 3.1 g/dL (3.2-5.0); ALKALINE PHOSPHATASE 113 u/l (38-126); ANION GAP 11 (6-22 (CALC)); BILIRUBIN, TOTAL 0.8 mg/dL (0.0-1.4); BUN 27 mg/dL (8-23); BUN/CREATININE RATIO 26 (12-20 (CALC)); CARBON DIOXIDE 26 mmol/l (22-30); CHLORIDE 110 mmol/l (95-108); CREATININE 1.1 mg/dL (0.7-1.3); GFR > 60 ML/MIN (>=60 (CALC)); GFR FOR AFR.AMER. > 60 ML/MIN (>=60 (CALC)); POTASSIUM 4.3 mmol/l (3.5-5.1); SGOT/AST 45 u/l (19-48); SODIUM 142 mmol/l (137-146); TOTAL PROTEIN 6.3 g/dL (6.3-8.2)
[2020-05-18 06:59] LABS: HEMATOCRIT 43.4 % (39.0-50.0); HEMOGLOBIN 13.8 g/dl (14.0-18.0); MEAN CORPUSCULAR HGB 31.2 pG CALC (26.0-32.0); MEAN CORPUSCULAR HGB CONC 31.8 g/dL CAL (32.0-36.0); NEUT# 17.03 thou/uL (1.82-7.42); RED BLOOD COUNT 4.43 mill/uL (4.70-6.10); RED CELL DISTRI WIDTH 14.2 % (11.5-15.5)
--- NOTE | 2020-05-18 07:30 | NUR ---
Pt resting in bed without resp distress noted. Assessment completed. O2 via NC at 15 liters. Pt does like to keep the oxygen on. Pt is not restrained at this time. Pt does not communicate other than nodding his head for yes and no question. Pt does not want any breakfast, does not want a sip of water. Will continue to monitor condition. Call light within reach.
[2020-05-18 08:23] LABS: C-REACTIVE PROTEIN > 27.0 mg/dL (0-0.9)
--- NOTE | 2020-05-18 10:00 | NUR ---
Pt continues to rest quietly in bed. Moving more which is decreasing his 02 sat. Soft wrist restraints applied to decrease his ability to remove the O2. Pt continues on a 50% nat mask. O2 sat 95%. Will continue to monitor condition.
--- NOTE | 2020-05-18 12:00 | NUR ---
Pt continues to rest quietly in bed. ROM provided to both extremities. Soft wrist restraints remain in place. Garcia catheter to bedside drain. O2 sat 90%. Will continue to monitor.
--- NOTE | 2020-05-18 14:00 | NUR ---
Pt continues to rest quietly in bed. No change in condition. O2 sat 94%. Will continue to monitor.
--- NOTE | 2020-05-18 16:15 | NUR ---
Pt's Sat 87-88 repositioned, pt sleepy only nods head to yes and no questions. Good strong melissa hand mixer runner. Will continue to monitor.
--- NOTE | 2020-05-18 16:30 | NUR ---
Pt continues with O2 sat 87-88%. Resp Therapy in to change O2 from 50% nat mask to rebreather and to obtain ABGs. Pt able to communicate verbally. Also continues to nod head to yes and no questions. Will continue to monitor.
--- NOTE | 2020-05-18 17:00 | NUR ---
Dr. Keane notified of change in patient's condition. Dr. Craft spoke with brother, brother wishes for him to be a full code. O2 sat at 99% on rebreather. Will continue to monitor.
--- NOTE | 2020-05-18 18:49 | NUR ---
Pt continues to rest quietly in bed. No resp distress noted. No change in assessment. Soft wrist restraints in place. Will continue to monitor.
--- NOTE | 2020-05-18 20:00 | NUR ---
RESTING IN BED WITH EYES CLOSED. OPENS EYES TO NAME. MINIMAL VERBALIZATION. ABLE TO MOVE ALL EXTREMITIES. RESP SHALLOW ON NON-REBREATHER, O2 SAT 95% BREATH SOUNDS DIMINISHED THROUGHOUT. MOIST COUGH, EXPECTORATES SMALL AMOUNTS THICK WHITE. ORAL CARE PROVIDED WITH TOOTHETTES. SALINE LOCK INTACT IN RAC, SITE BENIGN. FREGOSO DRAINS CLEAR YELLOW. ENCOURAGED REST IN PRONE POSITION, PATIENT REFUSES. SHIFT ASSESSMENT COMPLETED. EXPLAINED PLAN OF CARE.
--- NOTE | 2020-05-18 22:00 | NUR ---
PATIENT RESTLESS AT TIMES, OCC REMOVING O2 MASK AND QUICKLY DESATS. FREQ EXPLANATIONS OF NEED FOR O2 TO WHICH PATIENT SHAKES HIS HEAD NO. VSS. SR ON MONITOR-ST WHEN O2 IS OFF. PARTIAL LINEN CHANGE AND REPOSITIONED IN BED.
[2020-05-19] VITALS (9 sets, daily range): BP systolic 111–165; BP diastolic 82–102
--- NOTE | 2020-05-19 | NUR ---
FREQ NEEDS REMINDERS TO LEAVE O2 IN PLACE. SOFT WRIST RESTRAINTS ARE IN PLACE FOR PATIENT SAFETY D/T DESATTING WHEN O2 OFF. PATIENT UNABLE TO FOLLOW INSTRUCTIONS.
--- NOTE | 2020-05-19 02:00 | NUR ---
RESTLESS AT TIMES. INCONTINENT OF SMALL AMOUNT OF DARK BROWN PASTY STOOL. COMPLETE BED BATH AND LINENS CHANGED. REPOSITIONED IN BED. VSS. SR ON MONITOR.
--- NOTE | 2020-05-19 04:00 | NUR ---
HAS BEEN RESTING QUIETLY SINCE BATHED EARLIER.
[2020-05-19 05:33] LABS: ALKALINE PHOSPHATASE 107 u/l (38-126); ANION GAP 14 (6-22 (CALC)); BILIRUBIN, TOTAL 0.6 mg/dL (0.0-1.4); BUN 33 mg/dL (8-23); BUN/CREATININE RATIO 31 (12-20 (CALC)); CARBON DIOXIDE 24 mmol/l (22-30); CHLORIDE 114 mmol/l (95-108); CREATININE 1.1 mg/dL (0.7-1.3); GFR > 60 ML/MIN (>=60 (CALC)); GFR FOR AFR.AMER. > 60 ML/MIN (>=60 (CALC)); POTASSIUM 4.6 mmol/l (3.5-5.1); SGOT/AST 37 u/l (19-48); SODIUM 147 mmol/l (137-146); TOTAL PROTEIN 6.2 g/dL (6.3-8.2)
--- NOTE | 2020-05-19 06:00 | NUR ---
NO CHANGES TO REPORT. VSS. SR ON MONITOR NON-REBREATHER REMAINS ON WITH O2 SAT MAINTAINING AROUND 94%
--- NOTE | 2020-05-19 07:30 | NUR ---
pt awake in bed; no apparent distress noted; pt offers no complaints; assessment completed at this time; pt alert to person; denies pain; no n/v noted; deny discomforts; resp even and unlabored; lungs clear/ diminished bases; skin color wnl; o2 at 15L NRB; moist productive cough noted; hr reg; strong pulses; no edema noted; sr/st on monitor; abd soft with bs present; no bm noted per engineering writer; park to gravity drianing well; #20 removed from rac with catheter tip intact; #20 started to lw x1 attempt; flushed and patent; ivf initiated at this time; restraints released for nursing care and repositioning; reapplied; engineering writer attempt to feed pt; pt will only drink orange juice; plan of care/ am meds explained; call light within reach; will continue to monitor
--- NOTE | 2020-05-19 08:15 | NUR ---
resting in bed with eyes closed; no apparent distress noted; restraints intact; sr on monitor; park to gravity; iv intact and patent; call light within reach; will continue to monitor
--- NOTE | 2020-05-19 09:05 | NUR ---
Dr Keane present at bedside to assess pt and discuss plan of care; pt able to take po asa; po fluids given; pt declining offered foods such as pudding, jello and juice; repositioned to right side; pillow placed under left side; call light within reach; will continue to monitor
--- NOTE | 2020-05-19 10:03 | NUR ---
resting in bed with eyes closed; no apparent distress noted; sr on monitor; iv intact and patent; park to gravity; NRB at 15L intact; restraints continued; staff at bedside for oral care; po fluids provided; will continue to monitor
--- NOTE | 2020-05-19 10:20 | NUR ---
check writer salesperson in to assess pt; pt noted with NRB removed; o2 sat 74% RA; o2 reapplied with immed increase in o2 sat to 95%; sr on monitor; will continue to monitor
--- NOTE | 2020-05-19 11:00 | NUR ---
pt has removed NRB; RT at bedside to reapply
--- NOTE | 2020-05-19 12:00 | NUR ---
awake in bed; pt has removed oxygen; o2 sat noted at 78%; o2 reapplied; pt repositioned to left side; pillow placed under right side; oral care with toothette; restraints reinforced; sr on monitor; park to gravity; pt drink sweet tea but declined meal; #22 started to lfa x1 attempt; PPN explained; call light within reach; will continue to monitor
--- NOTE | 2020-05-19 14:00 | NUR ---
awake in bed; sr on monitor; iv intact and patent; park to gravity; o2 via NRB; restraints released for nursing care/ reapplied; po fluids offered; call light within reach; will continue to monitor
--- NOTE | 2020-05-19 15:00 | NUR ---
awake in bed; pt continues to removed NRB intermittently; o2 sat quickly drop without oxygen; iv intact and patent; sr on monitor; park to gravity; repositioned; restraints continued; will continue to monitor
--- NOTE | 2020-05-19 16:10 | NUR ---
awake in bed; no apparent distress noted; pt offers no complaints; iv intact and patent; no redness or edema noted at site; sr on monitor; o2 per nc NRB; park to gravity; call light within reach; will continue to monitor
--- NOTE | 2020-05-19 17:55 | NUR ---
awake in bed; n apparent distress noted; resp even and unlabored; iv intact and patent; ppn infusing as per orders; no redness or edema noted at site; accucheck 154; o2 per NRB at 15L; sr on monitor; park to gravity; repositioned to high fowlers; policy writer sales at bedside attempting to feed pt; pt only ate one bite of lasagna then declined meal; pt tolerating po fluids well; restraints intact; call light within reach
--- NOTE | 2020-05-19 19:30 | NUR ---
RESTING WITH EYES CLOSED ON ROUNDS. CALM AND RESTFUL AT THIS TIME. RESP SHALLOW. NRB ON AT 15 L. O2 SAT 97% WORLD HISTORY TEACHER SHOWS SR. NOT DISTURBED AT THIS TIME.
--- NOTE | 2020-05-19 20:30 | NUR ---
AWAKE ON ROUNDS. MORE ALERT TONIGHT THAN PAST FEW NIGHTS. FOLLOWING COMMANDS. MOVING ALL EXTREMITIES. ANSWERS QUESTIONS, SPEECH GARBLED. RESP SHALLOW. NRB IN USE. BREATH SOUNDS DIMINISHED THROUGHOUT. OCC COUGH, PRODUCTIVE OF MOYA SECRETIONS. FREGOSO DRAINS CLEAR YELLOW URINE. SALINE LOCK IN LFA AND IV SITE IN LW,, BOTH SITES BENIGN. PPN INFUSING AT 126 ML/HR. SHIFT ASSESSMENT COMPLETED. EXPLAINED PLAN OF CARE. SUPPORT AND REASSURANCE PROVIDED. CALL WARD IN REACH. SOFT WRIST RESTRAINTS ON FOR PATIENT SAFTEY, D/T REMOVES NRB MASK AND QUICKLY DESATS. DENIES NEEDS AT THIS TIME.
--- NOTE | 2020-05-19 22:00 | NUR ---
ASSISTED PATIENT TO DRINK CARTON OF APPLE JUICE. NO DIFFICULTY SWALLOWING. REPOSITIONED IN BED.
[2020-05-20] VITALS (17 sets, daily range): BP systolic 101–169; BP diastolic 62–94
--- NOTE | 2020-05-20 00:05 | NUR ---
PATIENT TURNING SELF FROM SIDE TO SIDE TONIGHT. ANSWERING QUESTIONS. ACCU CHECK [id number], PATIENT REFUSED SS COVERAGE.
--- NOTE | 2020-05-20 02:00 | NUR ---
SLT RESTLESS OVER PAST HOUR. OCC ABLE TO GET NRB MASK OFF AND DESATS INTO THE 80'S. SUPORT AND REASSURANCE PROVIDED, ASISTED WITH PO FLUIDS. REPOSITIONED IN BED.
--- NOTE | 2020-05-20 04:00 | NUR ---
NO CHANGES TO REPORT. DOZES FOR SHORT INTERVALS. PPN INFUSING WITHOUT INCIDENT. SR ON MONITOR. REMAINS ON NRB O2 SATS IN THE 90'S UNLESS PATIENT REMOVES MASK .
[2020-05-20 05:24] LABS: HEMATOCRIT 45.4 % (39.0-50.0); HEMOGLOBIN 14.7 g/dl (14.0-18.0); IMMATURE GRANULOCYTES 3.2 % (0.0-5.0); MEAN CELL VOLUME 98.7 fL CALC (80.0-100.0); MEAN CORPUSCULAR HGB CONC 32.4 g/dL CAL (32.0-36.0); NEUT# 21.96 thou/uL (1.82-7.42); RED BLOOD COUNT 4.6 mill/uL (4.70-6.10)
[2020-05-20 05:52] LABS: ALBUMIN 2.9 g/dL (3.2-5.0); ALKALINE PHOSPHATASE 104 u/l (38-126); ANION GAP 9 (6-22 (CALC)); BILIRUBIN, TOTAL 0.6 mg/dL (0.0-1.4); BUN 39 mg/dL (8-23); BUN/CREATININE RATIO 41 (12-20 (CALC)); CARBON DIOXIDE 27 mmol/l (22-30); CHLORIDE 110 mmol/l (95-108); GFR > 60 ML/MIN (>=60 (CALC)); GFR FOR AFR.AMER. > 60 ML/MIN (>=60 (CALC)); MAGNESIUM 2.7 mg/dL (1.6-2.3); POTASSIUM 4.7 mmol/l (3.5-5.1); SGOT/AST 37 u/l (19-48); SODIUM 141 mmol/l (137-146); TOTAL PROTEIN 6.1 g/dL (6.3-8.2)
--- NOTE | 2020-05-20 06:00 | NUR ---
BS THIS MORNING IS 148, NO COVERAGE REQUIRED PER SS PROTOCOL.
[2020-05-20 06:10] LABS: C-REACTIVE PROTEIN 18.2 mg/dL (0-0.9)
--- NOTE | 2020-05-20 06:45 | NUR ---
RECIEVED REPORT FROM OSVALDO HEADLEY. ASSUMED PT CARE.
--- NOTE | 2020-05-20 07:00 | NUR ---
PT FOUND WITH NON-REBREATHER OFF , PT REPOSITION, RESTRAINTS INTACT, MASK REAPPLIED. WILL MONITOR.
--- NOTE | 2020-05-20 08:00 | NUR ---
PT RESTING IN BED WITH ALERT WITH CONFUSION, STAFF MUST ANTICIPATE NEEDS. PT CONTINUES TAKING MASK OFF, DESTATS IMMEDIATELY. NON-REBEATHER REAPPLIED. 15LPM SA02@94%. LS DIMINISHED THROUGHOUT. PT REFUSING BREAKFAST OR DRINKS AT THIS TIME. FREGOSO REMAINS PATENT, DRAINING TO BSD VIA GRAVITY. BILAT SOFT WRIST RESTRAINTS INTACT. PT REPOSITIONED FOR COMFORT AND Care. WILL MONITOR.
--- NOTE | 2020-05-20 09:20 | NUR ---
DR. DIAS AT BEDSIDE FOR ASSESSMENT AND TO DISCUSS PLAN OF CARE. NEW ORDERS RECIEVED.
--- NOTE | 2020-05-20 09:31 | NUR ---
PT AGAIN WIGGLED NON-REBREATHER OFF, RT AT BEDSIDE TO REAPPLY. WILL MONITOR.
--- NOTE | 2020-05-20 10:00 | NUR ---
RT AT BEDSIDE, PT PULLED OFF MASK, RE APPLIED.
--- NOTE | 2020-05-20 11:00 | NUR ---
PT REPOSITIONED, MOUTH CARE DONE. PT GIVEN FLUIDS, DECLINED FOOD AT THIS TIME. PT OFFERED SHERBERT, DECLINED. PT OFFERED INSURE CLEAR, ACCEPTED. PT TOLERATED FLUIDS WELL. ILDEFONSO REMAINS PATENT, WILL MONITOR.
--- NOTE | 2020-05-20 12:00 | NUR ---
PT REPOSITIONED FOR COMFORT, FLUIDS OFFERED AND GIVEN. RESPIRATION EVEN/SHALLOW, SAO2@96% ON 15LPM VIA NON-REBREATHER. NO DISTRESS NOTED AT THIS TIME WILL MONITOR.
--- NOTE | 2020-05-20 13:00 | NUR ---
PT REPOSITIONED, O2MASK REAPPLIED, RT AT BEDSIDE.
--- NOTE | 2020-05-20 13:30 | NUR ---
PT AGAIN FOUND WITH MASK OFF, REAPPLIED. WILL MONITOR.
--- NOTE | 2020-05-20 13:48 | NUR ---
PT NOTED WITH O2 OFF AGAIN, DR. DIAS NOTIFIED .NEW ORDERS RECIEVED. WILL MONITOR.
--- NOTE | 2020-05-20 15:32 | NUR ---
PT RPOSITIONED, O2 MASK OFF AND REPLACED AGAIN. PT EDUCATED ON THE RISKS OF TAKE IT OFF AND THE EFFECT OF O2 DEPRIVATION. WILL MONITOR.
--- NOTE | 2020-05-20 16:30 | NUR ---
PT TOOK OFF MASK, RE APPLIED. PT REPOSITIONED, FREGOSO PATENT TO BSD VIA GRAVITY.
--- NOTE | 2020-05-20 17:30 | NUR ---
PT OFFERED CLEAR LIQUIDS, SOME TAKEN. WILL MONITOR.
--- NOTE | 2020-05-20 18:22 | NUR ---
PT REPOSITIONED, 02 MASK REAPPLIED, SA02@93%. WILL MONITOR.
--- NOTE | 2020-05-20 18:45 | NUR ---
REPORT RECEIVED FROM LAURA RILEY. CARE ASSUMED.
--- NOTE | 2020-05-20 19:00 | NUR ---
PT RESTING IN BED AWAKE AND YELLING OUT. PT IS ALERT AND ORIENTED TO SELF ONLY. SPEECH IS GARBLED. SHIFT ASSESSMENT COMPLETED AT THIS TIME. IV PATENT X2. CALL LIGHT IN REACH. WILL CONTINUE TO CLOELY MONITOR
--- NOTE | 2020-05-20 20:00 | NUR ---
PT REPEATEDLY TAKING OFF NRB MASK AND IMMEADIATELY DROPS O2 SATS TO 55-60%. MULTIPLE ATTEMPTS MADE TO REORIENT PT. PT CONTINUES TO USE SHOULDER TO REMOVE NRB MASK. DR DIAS NOTIFIED. ORDERS RECIEVED TO PLACE PT ON BIPAP. RT NOTIFIED.
--- NOTE | 2020-05-20 20:28 | NUR ---
RT AT BEDSIDE TO PLACE PT ON BIPAP.
--- NOTE | 2020-05-20 20:45 | NUR ---
PT HAD LEG THROUGH BED RAIL PILLOW OVER FACE. THIS NURSE INTO ROOM. REPOSITIONED PATIENT. PATIENT PROVIDED A CLEAR ENSURE. VSS ON MONITOR. CALL LIGHT IN REACH. WILL CONTINUE TO CLOSELY MONITOR.
--- NOTE | 2020-05-20 21:03 | NUR ---
PT MEDICATED WITH PRN MORPHINE PER JAN AND MD ORDERS
--- NOTE | 2020-05-20 22:45 | NUR ---
PT RESTING IN BED AWAKE ON BIPAP. RESP ARE EVEN AND UNLABORED AT THIS TIME. SR IN 80S. PT SEEMS TO BE LESS AGITATED AND RESPIRATORY EFFORT SEEMS MORE EFFECTIVE ON BIPAP. NEW TPN BAG HUNG WITH TUBING CHANGED AT THIS TIME. VSS ON MONITOR. WILL CONTINUE TO CLOELY MONITOR
--- NOTE | 2020-05-20 23:10 | NUR ---
PT REPOSITIONED IN BED. NEW IV STARTED TO LFA. #20 X3 ATTEMPTS. PT TOLERATED WELL. ACCUCHECK OBTAINED 190. WILL MEDICATED PER MAR
--- NOTE | 2020-05-20 23:58 | NUR ---
PT RESTING IN BED COMFORTABLY ON BIPAP. VSS ON MONITOR. WILL CONTINUE TO CLOSELY MONITOR.
[2020-05-21] VITALS (16 sets, daily range): BP systolic 89–171; BP diastolic 58–99
--- NOTE | 2020-05-21 00:50 | NUR ---
BROTHER NIKIA PHONED FOR UPDATE. CODE PROVIDED. UPDATE PROVIDED.
--- NOTE | 2020-05-21 01:07 | NUR ---
PT HAD TAKEN OFF BIPAP MASK AND O2 SATS DOWN TO 55% IMMEADIATELY. RT NOTIFIED TO COME AND ASSIST THIS ELECTRICAL MAINTENANCE WORKER. PT PLACED BAKC ON BIPAP. REPOSITIONED IN BED. VSS ON MONITOR. WILL CONTINUE TO MONITOR CLOSELY.
--- NOTE | 2020-05-21 02:00 | NUR ---
PT TAKING BIPAP MASK OFF TWICE. PT GIVEN A DRINK OF WATER. PT AGAIN REORIENTED AND EXPLAINED THAT HE NEEDS TO LEAVE THE MASK ON.
--- NOTE | 2020-05-21 02:33 | NUR ---
PT PULLED BIPAP OFF. PT REPOSITIONED IN BED. BIPAP PLACED BACK ON PATIENT. WILL CONTINUE TO [facility] MONITOR.
--- NOTE | 2020-05-21 03:30 | NUR ---
PT PULLED BIPAP OFF AGAIN. THIS TOPPER PACKER INTO ROOM. REPOSITIONED PATIENT. BIPAP REPLACED. PT MEDICATED PER JAN. WILL CONTINUE TO MONITOR.
--- NOTE | 2020-05-21 06:02 | NUR ---
PT RESTING IN BED AWAKE AND ON BIPAP. LABS OBTAINED. ACCUCHECK COMPLETED. PT TOLERATED WELL.
[2020-05-21 06:09] LABS: IMMATURE GRANULOCYTES 4.7 % (0.0-5.0); MEAN CORPUSCULAR HGB 31.8 pG CALC (26.0-32.0); MEAN CORPUSCULAR HGB CONC 31.4 g/dL CAL (32.0-36.0); NEUT# 20.9 thou/uL (1.82-7.42); RED BLOOD COUNT 3.81 mill/uL (4.70-6.10); RED CELL DISTRI WIDTH 13.8 % (11.5-15.5)
[2020-05-21 06:10] LABS: HEMATOCRIT 38.5 % (39.0-50.0); HEMOGLOBIN 12.1 g/dl (14.0-18.0)
--- NOTE | 2020-05-21 06:45 | NUR ---
RECIEVED REPORT FROM OSVALDO SALAS. ASSUMED PT CARE.
[2020-05-21 07:05] LABS: ALBUMIN 2.8 g/dL (3.2-5.0); ALKALINE PHOSPHATASE 95 u/l (38-126); BILIRUBIN, TOTAL 0.7 mg/dL (0.0-1.4); BUN 42 mg/dL (8-23); BUN/CREATININE RATIO 44 (12-20 (CALC)); C-REACTIVE PROTEIN 8.7 mg/dL (0-0.9); CARBON DIOXIDE 24 mmol/l (22-30); CHLORIDE 109 mmol/l (95-108); GFR > 60 ML/MIN (>=60 (CALC)); GFR FOR AFR.AMER. > 60 ML/MIN (>=60 (CALC)); MAGNESIUM 2.5 mg/dL (1.6-2.3); SGOT/AST 31 u/l (19-48); SODIUM 137 mmol/l (137-146)
[2020-05-21 07:18] LABS: ANION GAP 9 (6-22 (CALC)); POTASSIUM 5.2 mmol/l (3.5-5.1)
--- NOTE | 2020-05-21 07:30 | NUR ---
PT RESTING IN BED, AFEBRILE. BIPAP IN PLACE, FIO2@80%, PEEP- 8, R-16. PT RESTING WITH EYES CLOSED. SR ON TELEMETRY, FREGOSO REMAINS PATENT, DRAINING TO BSD VIA GRAVITY. PPN INFUSING AT 126ML/HR, NO S/S OF INFITRATION OR INFECTION NOTED AT SITE. WILL MONITOR CLOSELY.
--- NOTE | 2020-05-21 07:43 | NUR ---
RADIOLOGY AT BEDSIDE FOR CXR
--- NOTE | 2020-05-21 08:45 | NUR ---
DR. DIAS AT BEDSIDE FOR ASSESSMENT AND TO DISCUSS PLAN OF CARE. NEW ORDERS RECIEVED.
--- NOTE | 2020-05-21 09:45 | NUR ---
PT GIVEN COMPLETE BED BATH, FREGOSO CARE, MOUTH CARE. COMPLETE LINEN CHANGE DONE. PT TOLERATED WELL, REPOSITIONED, BACK/BODY RUB WITH LOTION. SOFT WRIST RESTRAINTS REPLACED. BIPAP REMAINS INTACT. WILL MONITOR.
--- NOTE | 2020-05-21 10:14 | NUR ---
Checked on patient again today and he is restrained and not appropriate for eval at this time. Nursing requests no rehab at this time. We will continue to attempt eval when he is medically stable
--- NOTE | 2020-05-21 10:14 | NUR ---
Nursing requests no rehab at this time. Will assess when medically stable.
--- NOTE | 2020-05-21 12:00 | NUR ---
PT RESTING IN BED, BIPAP IN PLACE. PT MEDICATED FOR PAIN ORDERED PER PT REQUEST. PT CURRENTLY LEAVING BIPAP IN PLACE. SA02@94%. WILL MONITOR.
--- NOTE | 2020-05-21 12:51 | NUR ---
US AT BEDSIDE FOR ECHO
--- NOTE | 2020-05-21 13:55 | NUR ---
US AT BEDSIDE FOR US OF CARATID.
--- NOTE | 2020-05-21 16:20 | NUR ---
PT RESTING IN BED WITH EYES CLOSED, BIPAP IN PLACE. NEW ORDERS RECIEVED, PPN DISCONTINUED. FREGOSO REMAINS PATENT, DRAINING TO BEDSIDE DRAINAGE. WILL MONITOR.
--- NOTE | 2020-05-21 17:24 | NUR ---
PT REPOSITIONED, BIPAP IN PLACE, DRINK OFFERED AND TAKEN WITHOUT DIFFICULTY. STAFF MUST ANTICIPATE NEEDS, PT FOLLOWS SIMPLE INSTRUCTIONS. WILL MONITOR.
--- NOTE | 2020-05-21 18:24 | NUR ---
PT RESTING WITH EYES CLOSED, FREGOSO PATENT, BIPAP IN PLACE. NO DISTRESS NOTED AT THIS TIME.
--- NOTE | 2020-05-21 18:45 | NUR ---
REPORT RECEIVED FROM LAURA RILEY. CARE ASSUMED.
--- NOTE | 2020-05-21 19:00 | NUR ---
PT RESTING IN BED AWAKE AND HAD PULLED OFF BIPAP. PT IS ALERT AND ORIENTED TO NAME. PT STATES HE NEEDS A BREAK AND IS THIRSTY. PT PLACED ON O2 15L HI DEUCE NC. EXPLAINED THAT WE COULD DO THIS FOR A SHORT TIME. PT PROVIDED GATORADE AND ENSURE CLEAR LIQUID FOR DRINKING. PT ABLE TO TAKE SMALL SIPS AT A TIME. PT TOLERATED WELL. IV PATENT X2. BED ALLARM SET FOR PT SAFETY. CALL LIGHT IN REACH. WILL CONTINUE TO MONITOR.
--- NOTE | 2020-05-21 19:20 | NUR ---
PT PULLED OFF NASAL CANNULA O2 SATS IN 70S. ASKED PT WHY HE TOOK IT OFF HE WAS UNSURE. PT STATES 5 MORE MINUTES. AND REQUESTS VANILLA ICE CREAM.WILL PROVIDE VANILLA ICE CREAM. CALL [facility] IN REACH. WILL CONTINUE TO MONITOR.
--- NOTE | 2020-05-21 20:45 | NUR ---
PT HAD REMOVED HI DEUCE NC. PT SATS 60S. PT PLACED BACK ON NC. PT PROVIDED APPLE JUICE AND A HALF OF ICE CREAM. PT TOLERATED WELL. PT MEDICATED WITH 2100 MEDS PER MAR. PT PLACED ON BIPAP. CALL LIGHT IN REACH. WILL CONTINUE TO MONITOR CLOSELY.
--- NOTE | 2020-05-21 21:30 | NUR ---
PT DISCONNECTED BIPAP. THIS NURSES INTO ROOM. BIPAP RECONNECTED.
--- NOTE | 2020-05-21 22:15 | NUR ---
PT RESTING IN BED WITH EYES CLOSED ON BIPAP. VSS ON MONITOR. RESP ARE EVEN AND UNLABORED. NO DISTRESS NOTED. CALL LIGHT IN REACH. WILL CONTINUE TO MONITOR.
--- NOTE | 2020-05-21 23:56 | NUR ---
PT RESTING IN BED WITH EYES CLOSED AROUSES TO NURSE ENTERING ROOM. PT PROVIDED WITH DRINK THEN PT PLACED BACK ON BIPAP. PT TOLERATING BIPAP WELL. CALL LIGHT IN REACH. WILL CONTNUE TO MONITOR.
[2020-05-22] VITALS (19 sets, daily range): BP systolic 98–158; BP diastolic 63–97
--- NOTE | 2020-05-22 02:02 | NUR ---
PT RESTING IN BED ON BIPAP. VSS ON MONITOR. CALL LIGHT IN REACH. WILL CONTINUE TO MONITOR.
--- NOTE | 2020-05-22 04:02 | NUR ---
PT RESTING IN BED AWAKE. PT PROVIDED WITH SIPS OF APPLE CLEAR ENSURE. PT THEN PLACED BACK ON BIPAP. RESP ARE EVEN AND UNLABORED. NO DISTRESS NOTED. CALL LIGHT IN REACH. WILL CONTINUE TO CLOSELY MONITOR.
--- NOTE | 2020-05-22 04:18 | NUR ---
PT HAD REMOVED BIPAP FROM FACE. PT DID NOT WANT BIPAP PLACED BACK ON. PT PLACED ON 15L HI DEUCE NC. PT O2 SATS >92%. VSS ON MONITOR. WILL CONTINUE TO MONITOR CLOSELY
--- NOTE | 2020-05-22 04:47 | NUR ---
PT PLACED BACK ON BIPAP DUE TO REMOVING O2 NC. AM LABS OBTAINED AT THIS TIME. PT TOLERATED WELL.
[2020-05-22 05:40] LABS: BUN 37 mg/dL (8-23); BUN/CREATININE RATIO 39 (12-20 (CALC)); CARBON DIOXIDE 21 mmol/l (22-30); CHLORIDE 109 mmol/l (95-108); GFR > 60 ML/MIN (>=60 (CALC)); GFR FOR AFR.AMER. > 60 ML/MIN (>=60 (CALC)); MAGNESIUM 2.3 mg/dL (1.6-2.3); SODIUM 136 mmol/l (137-146)
[2020-05-22 05:43] LABS: ANION GAP 12 (6-22 (CALC)); POTASSIUM 5.8 mmol/l (3.5-5.1)
--- NOTE | 2020-05-22 06:23 | NUR ---
PT PULLED BIPAP OFF. PT PLACED BACK ON BIPAP.
--- NOTE | 2020-05-22 06:45 | NUR ---
RECIEVED REPORT FROM OSVALDO SALAS. ASSUMED PT CARE.
--- NOTE | 2020-05-22 07:15 | NUR ---
PT RESTING IN BED, SA02@87%RA. PT HAS TAKEN NC OFF. REPLACED, PT LSS REMAIN DIMINISHED, RESPIRATIONS EVEN/SHALLOW. 20GLFA INFUSING D5 1/5NS@75ML/HR. ABDOMEN SOFT/NON-TENDER, BSX4 ACTIVE. FREGOSO REMAINS PATENT, DRAINING TO BSD VIA GRAVITY. CALL LIGHT IN REACH. WILL MONITOR.
--- NOTE | 2020-05-22 08:00 | NUR ---
PT SA02@87% ON 15LPM/HF/NC. PT PLACED ON BIPAP, FI02@50%, PEEP 8, RR- 16. WILL MONITOR.
--- NOTE | 2020-05-22 08:45 | NUR ---
DR. DIAS AT BEDSIDE FOR ASSESSMENT AND TO DISCUSS PLAN OF CARE. NEW ORDERS RECIEVED. WILL MONITOR.
--- NOTE | 2020-05-22 09:03 | NUR ---
CHANGED EPAP TO 16
--- NOTE | 2020-05-22 10:00 | NUR ---
PT RESTING IN BED, EYES CLOSED. SA02@92% BIPAP IN PLACE.
--- NOTE | 2020-05-22 10:15 | NUR ---
PT PULLED BIPAP TUBING OUT. REAPPLIED BIPAP. WILL MONITOR.
--- NOTE | 2020-05-22 12:00 | NUR ---
PT REPOSITIONED, RESTING IN BED, WITH BIPAP IN PLACE. NO DITRESS NOTED AT THIS TIME. WILL MONITOR.
--- NOTE | 2020-05-22 14:00 | NUR ---
RT AT BEDSIDE TO TRANSFER PT FROM BIPAP TO 6LPM/HF/NC. PT TOLERATING WELL. WILL MONITOR. SA02@90%.
--- NOTE | 2020-05-22 14:26 | NUR ---
PT IS OFF BIPAP ON 6L/MIN NC IN NO RESP. DISTRESS. SPO2 IS 94%.
--- NOTE | 2020-05-22 15:30 | NUR ---
PT AT BEDSIDE.
--- NOTE | 2020-05-22 16:08 | NUR ---
PT TAKING O2 OFF, RE APPLIED, RT AT BEDSIDE.
--- NOTE | 2020-05-22 19:30 | NUR ---
RESTING IN BED WATCHING TV. MORE ALERT TONIGHT. MOVING ALL EXTERMITIES ALTHOUGH UNABLE TO HAND WHEEL ALIGNER ON RIGHT. RESP SHALLOW. O2 ON AT 10 L HF NC, O2 SAT 92% IV IN LFA WITH D5 1/2 NS INFUSING AT 75 ML/HR. LW SOFT RESTRAINT IN PLACE. SHIFT ASSESSMENT COMPLETED. VSS. RELATIONS LIAISON SHOWS SR. EXPLAINED PLAN OF CARE.
--- NOTE | 2020-05-22 21:00 | NUR ---
LFA IV SITE LEAKING. SLT REDDENED AND TENDER TO TOUCH, DC'D WITH CATHETER INTACT. RESTARTED NEW IV SITE IN RAC #20 X1 ATTEMPT WITH D5 1/2 NS INFUSING AT 75 ML/HR.
--- NOTE | 2020-05-22 21:10 | NUR ---
MORPHINE 2 MG IV FOR GENERALIZED DISCOMFORTS.
--- NOTE | 2020-05-22 22:00 | NUR ---
RESTING WITH EYES CLOSED. VSS.
[2020-05-23] VITALS (13 sets, daily range): BP systolic 94–164; BP diastolic 54–99
--- NOTE | 2020-05-23 | NUR ---
DOZES FOR SHORT INTERVALS. WHEN AWAKE, REMOVING O2 AND QUICKLY DESATS. YELLS OUT AT TIMES. FREQ EMOTIONAL SUPPORT AND REASSURANCE PROVIDED. VSS. SR ON MONITOR.
--- NOTE | 2020-05-23 01:00 | NUR ---
PATIENT C/O BEING SOB. CALLED RT AND PLACE PATIENT BACK ON BIPAP SETTING 30/06, O2 60% RATE 16.
--- NOTE | 2020-05-23 01:20 | NUR ---
PATIENT NOW RESTING CALMLY WITH EYES CLOSED. O2 SAT 94%
--- NOTE | 2020-05-23 01:59 | NUR ---
ON BIPAP. RESTING WITH EYS CLOSED. SR ON MONITOR. O2 SAT 94%
--- NOTE | 2020-05-23 02:36 | NUR ---
RESTLESS, PULLING OFF BIPAP. MEDICATED WITH MORPHINE 2 MG IVP. REPOSITONED IN BED.
--- NOTE | 2020-05-23 04:00 | NUR ---
RESTING WITH EYES CLOSED. CALM AND QUIET AT THIS TIME. VSS. SR ON MONITOR.
--- NOTE | 2020-05-23 04:45 | NUR ---
BLOOD DRAWN FOR AM LABS ORDERED VIA PERIPHERAL STICK IN [facility] USING AT #23 BUTTERFLY. PATIENT CALM AND COOPERATVIE AT THIS TIME.
[2020-05-23 05:25] LABS: HEMOGLOBIN 13.9 g/dl (14.0-18.0); IMMATURE GRANULOCYTES 2.9 % (0.0-5.0); MEAN CELL VOLUME 95.5 fL CALC (80.0-100.0); MEAN CORPUSCULAR HGB 31.6 pG CALC (26.0-32.0); MEAN CORPUSCULAR HGB CONC 33.1 g/dL CAL (32.0-36.0); NEUT# 20.54 thou/uL (1.82-7.42); RED BLOOD COUNT 4.4 mill/uL (4.70-6.10); RED CELL DISTRI WIDTH 13.5 % (11.5-15.5)
[2020-05-23 06:01] LABS: ALBUMIN 2.4 g/dL (3.2-5.0); ALKALINE PHOSPHATASE 90 u/l (38-126); ANION GAP 9 (6-22 (CALC)); BILIRUBIN, TOTAL 0.8 mg/dL (0.0-1.4); BUN 31 mg/dL (8-23); BUN/CREATININE RATIO 33 (12-20 (CALC)); C-REACTIVE PROTEIN 4.3 mg/dL (0-0.9); CARBON DIOXIDE 24 mmol/l (22-30); CHLORIDE 108 mmol/l (95-108); CREATININE 0.9 mg/dL (0.7-1.3); GFR > 60 ML/MIN (>=60 (CALC)); GFR FOR AFR.AMER. > 60 ML/MIN (>=60 (CALC)); MAGNESIUM 2.4 mg/dL (1.6-2.3); POTASSIUM 4.8 mmol/l (3.5-5.1); SGOT/AST 31 u/l (19-48); SODIUM 135 mmol/l (137-146); TOTAL PROTEIN 5.6 g/dL (6.3-8.2)
--- NOTE | 2020-05-23 06:01 | NUR ---
HAS RESTED WLL SINCE MORPHINE GIVEN EARLIER. IV SITE MAINTAINE DIN RAC WITH NS INFUSING. SR ON MONITOR. REMAINS ON BIPAP AT THIS TIME.
--- NOTE | 2020-05-23 06:45 | NUR ---
REPORT RECEIVED FROM KAYODE RILEY. CARE ASSUMED.
--- NOTE | 2020-05-23 07:00 | NUR ---
RT AT BEDSIDE DUE TO PATIENT TAKING SELF OFF OF BIPAP AND PLACE PAEIENT ON HIGH FLOW NASAL CANNULA.
--- NOTE | 2020-05-23 08:00 | NUR ---
PT RESTING IN BED AWAKE. PT IS ALERT AND ORIENTED TO SELF ONLY. SHIFT ASSESSMENT COMPLETED AT THIS TIME. IV PATENT X1. PT SET UP FOR AM MEAL AND FED. CALL LIGHT IN REACH. WILL CONTINUE TO MONITOR.
--- NOTE | 2020-05-23 10:23 | NUR ---
SPEECH THERAPY AT BEDSIDE AT THIS TIME FOR BEDSIDE SWALLOW EVAL
--- NOTE | 2020-05-23 10:29 | NUR ---
DR DIAS AT BEDSIDE AT THIS TIME
--- NOTE | 2020-05-23 11:01 | NUR ---
PT PULLED OFF O2. O2 SATS DOWN 65%. PT PLACED ON BIPAP. WILL CONTINUE TO MONITOR CLOSELY.
--- NOTE | 2020-05-23 12:00 | NUR ---
PT OFF BIPAP AND PLACED ON HI DEUCE NC. SET UP IN BED TO FEED. PT ATE MINIMAL WITH THIS NURSE FEEDING. PT GIVEN ATIVAN PER MAR AND PLACED BACK ON BIPAP. CALL LIGHT IN REACH. WILL CONTINUE TO MONITOR.
--- NOTE | 2020-05-23 13:00 | NUR ---
PT AT BEDSIDE TO SEE PATIENT. EXPLAINED THAT PATIENT WAS STILL ON BIPAP AND HAD BEEN GIVEN ATIVAN. ASKED IF PT COULD COME A LITTLE LATER TODAY.
--- NOTE | 2020-05-23 13:16 | NUR ---
therapist entered ICU to see patient however nursing requested that patient not be seen by physical therapy at this time.
--- NOTE | 2020-05-23 14:00 | NUR ---
PT RESTING IN BED WITH EYES CLOSED. RESP ARE EVEN AND UNLABORED. NO DISTRESS NOTED ON BIPAP. CALL LIGHT IN REACH. WILL CONTINUE TO MONITOR.
--- NOTE | 2020-05-23 16:15 | NUR ---
PT RESTING IN BED PULLING OFF BIPAP. RT AT BEDSIDE TO PLACE PATIENT ON HI DEUCE NC. PT HAD MODDERATE LOOSE BM. PT GIVEN FULL BED BATH AND LINEN CHANGE AT THIS TIME. CALL LIGHT IN REACH. WILL CONTINUE TO MONITOR.
--- NOTE | 2020-05-23 18:14 | NUR ---
RT AT BEDSIDE TO PLACE PT BACK ON BIPAP DUE TO PATIENT PULLING OFF HIGH DEUCE NASAL CANNULA. O2 SATS IN THE 60S. CALL LIGHT IN REACH. WILL CONTINUE TO MONITOR.
--- NOTE | 2020-05-23 18:45 | NUR ---
REPORT RECEIVED FROM OSVALDO SALAS. CARE ASSUMED.
--- NOTE | 2020-05-23 20:20 | NUR ---
PATIENT RESTING IN BED. PATIENT ON BIPAP. NO DISTRESS NOTED. VSS. REPOSITIONED PATIENT. IV PATENT, IVF INFUSING. SHIFT ASSESSMENT COMPLETE. LUNGS SOUNDS CORSE. RESPIRATIONS EVEN AND UNLABORED. CALL LIGHT IN REACH. WILL CONTINUE TO MONITOR.
--- NOTE | 2020-05-23 22:00 | NUR ---
PATIENT SLEEPING. PATIENT ON BIPAP. VSS. NO DISTRESS NOTED.
[2020-05-24] VITALS (10 sets, daily range): BP systolic 131–157; BP diastolic 87–114
--- NOTE | 2020-05-24 | NUR ---
PATIENT RESTING. NO DISTRESS NOTED. MEDICATED PER MAR.
--- NOTE | 2020-05-24 02:00 | NUR ---
PATIENT SLEEPING. VSS. CONTINUE TO MONITOR.
--- NOTE | 2020-05-24 04:50 | NUR ---
PATIENT RESTING IN BED. NO DISTRESS NOTED. ON BIPAP. CALL LIGHT IN REACH.
[2020-05-24 06:05] LABS: HEMATOCRIT 45.3 % (39.0-50.0); HEMOGLOBIN 14.7 g/dl (14.0-18.0); IMMATURE GRANULOCYTES 2.4 % (0.0-5.0); MEAN CELL VOLUME 95.4 fL CALC (80.0-100.0); MEAN CORPUSCULAR HGB 30.9 pG CALC (26.0-32.0); MEAN CORPUSCULAR HGB CONC 32.5 g/dL CAL (32.0-36.0); NEUT# 20.98 thou/uL (1.82-7.42); RED BLOOD COUNT 4.75 mill/uL (4.70-6.10); RED CELL DISTRI WIDTH 13.6 % (11.5-15.5)
[2020-05-24 06:18] LABS: ALBUMIN 2.4 g/dL (3.2-5.0); ALKALINE PHOSPHATASE 107 u/l (38-126); ANION GAP 8 (6-22 (CALC)); BILIRUBIN, TOTAL 0.9 mg/dL (0.0-1.4); BUN 26 mg/dL (8-23); BUN/CREATININE RATIO 30 (12-20 (CALC)); CARBON DIOXIDE 25 mmol/l (22-30); CHLORIDE 108 mmol/l (95-108); CREATININE 0.9 mg/dL (0.7-1.3); GFR > 60 ML/MIN (>=60 (CALC)); GFR FOR AFR.AMER. > 60 ML/MIN (>=60 (CALC)); POTASSIUM 4.5 mmol/l (3.5-5.1); SGOT/AST 37 u/l (19-48); SODIUM 136 mmol/l (137-146); TOTAL PROTEIN 5.2 g/dL (6.3-8.2)
--- NOTE | 2020-05-24 06:18 | NUR ---
PATIENT RESTING IN BED. NO DISTRESS NOTED. ABX GIVEN PER MAR. AM LABS COMPLETE. CONTINUE TO MONITOR.
--- NOTE | 2020-05-24 06:45 | NUR ---
RECIEVED REPORT FROM OSVALDO RAND. ASSUMED PT CARE.
--- NOTE | 2020-05-24 08:00 | NUR ---
PT RESTING WITH EYES CLOSED, VERY LETHARGIC, BIPAP IN PLACE. FI02@70%. LS REMAIN COARSE THROUGHOUT, SA02@90%. ABDOMEN SOFT/NON-TENDER, BSX4 ACTIVE. LBM 7-9-20. FREGOSO REMAINS PATENET, DRAINING TO BSD VIA GRAVITY. 20G RAC INFUSING D5 1/2 NS @75ML/HR. WILL MONITOR.
--- NOTE | 2020-05-24 09:00 | NUR ---
SP THERAPY VAHID AT BEDSIDE FOR EVEL, UNABLE TO ACCESS DUE TO PT BEING NPO, ON BIPAP AND NOT ALERT. PER NURSING.
--- NOTE | 2020-05-24 09:32 | NUR ---
DR. DIAS AT [facility] FOR ASSESMNET AND TO DISCUSS PLAN OF CARE. NEW ORDERS RECIEVED. WILL MONITOR.
--- NOTE | 2020-05-24 10:00 | NUR ---
PT REPOSITIONED, FREGOSO REMAINS PATENT TO BSD VIA GRAVITY, CLEAR YELLOW URINE. PT REMAINS AFEBRILE. CALL LIGHT IN REACH. WILL MONITOR.
--- NOTE | 2020-05-24 12:00 | NUR ---
PT REMAINS ON BIPAP, NO DISTRESS NOTED AT THIS TIME.
--- NOTE | 2020-05-24 13:08 | NUR ---
PT WITH SA02@81% ON BIPAP , RT AT BEDSIDE. SA02@91%. PT REMAINS IN BIPAP, NO NEW ORDERS.
--- NOTE | 2020-05-24 13:13 | NUR ---
INFECTIOUS DISEASE CONSULT PLACED.
--- NOTE | 2020-05-24 13:25 | NUR ---
Nursing requested no therapy at this time. Treatment witheld per nursing due to patient condition.
--- NOTE | 2020-05-24 14:00 | NUR ---
PT REPOSITIONED, BIPAP IN PLACE, FREGOSO PATENT, DRAINING TO BSD VIA GRAVITY. WILL MONITOR.
--- NOTE | 2020-05-24 15:59 | NUR ---
PT REMAINS ON BIPAP, REPSIRATIONS EVEN/UNLABORED, SA02@95%. WILL MONITOR.
--- NOTE | 2020-05-24 20:00 | NUR ---
RESTING WITH EYES CLOSED. SQUINTS EYES SHUT WHEN ASKED TO OPEN THEM. NODDING HEAD IN ANSWER TO QUESTIONS. ABLE TO MOVE ALL EXTREMITIES. RESP SHALLOW. ON BIPAP 16/8, FIO2 70% rate 16. O2 SAT 96% BREATH SOUNDS DIMINISHED THROUGHOUT LUNG PANTOJA. NO PERIPHERAL EDEMA, PUSLES PALPABLE. IV IN RAC, SITE BENIGN, D5 1/2 NS INFUSING AT 75 ML/HR. SAWMILL TALLY CLERK SHOWS SR. EXPLAINED PLAN OF CARE. CALL WARD IN REACH. NO NEEDS IDENTIFIED AT THIS TIME.
--- NOTE | 2020-05-24 22:00 | NUR ---
PATIENT MORE AWAKE THAN EARLIER. ABLE TO REACH BIPAP MASK AND ATTEMPTING TO REMOVE IT. SUPPORT AND REASSURANCE PROVIDED TO PATIENT. OFFERED PO FLUIDS AND DECLINES. TURNED TV OFF AND LIGHT LEFT ON IN ROOM PER PATIENT REQUEST. VSS. SR ON MONITOR.
--- NOTE | 2020-05-24 23:55 | NUR ---
OPENS EYES TO NAME. TOOK A FEW SIPS OF GATORADE. TURNED AND REPOSITONED ONTO SIDE. VSS. SR ON MONITOR.
[2020-05-25] VITALS (15 sets, daily range): BP systolic 77–148; BP diastolic 64–95
--- NOTE | 2020-05-25 02:00 | NUR ---
RESTING CALMLY AND QUIETLY AT THIS TIME. PATIENT HAS PERIODS OF RESTLESSNESS BUT CALMS VEBRAL CUES/EMOTINAL SUPPORT AND REASSURANCE.
--- NOTE | 2020-05-25 04:00 | NUR ---
INCONTINENT OF LOOSE BROWN STOOL. COMPLETE BATH GIVEN. LINENS CHANGED. BARRIER OINT APPLIED TO BUTTOCKS. COCCYX SLT REDDENED. REINFORCED NEED FOR REPOSITIONING. LIPS DRY AND CRACKED. SOFT WRIST RESTRAINT REMAINS IN PLACE TO LEFT ARM. IV SITE MAINTAINE DIN RAC, SITE BENIGN. FREGOSO DRAINS LARGE AMOUNT OF CLEAR YELLOW URINE. SR ON MONITOR.
--- NOTE | 2020-05-25 05:30 | NUR ---
MORPHINE 2 MG IVP FOR RESTLESSNESS. AND GENERALIZED DISCOMFORTS.
--- NOTE | 2020-05-25 06:00 | NUR ---
TURNED AND REPOSITIONED. VSS. CALM AND RESTFUL AT THIS TIME. SR ON MONITOR.
--- NOTE | 2020-05-25 06:55 | NUR ---
RECVD REPORT FROM OSVALDO HEADLEY @START OF SHIFT.
--- NOTE | 2020-05-25 08:00 | NUR ---
PT RESTING IN BED. ON BIPAP 16/8, O2 70%, R16. VSS. WILL CONTINUE TO MONITOR.
--- NOTE | 2020-05-25 10:49 | NUR ---
DR DIAS @BEDSIDE FOR ASSESSMENT.
--- NOTE | 2020-05-25 11:01 | NUR ---
PTS O2 SATS IN THE 70-80'S. BIPAP O2 SET TO 100% FROM 70%.
--- NOTE | 2020-05-25 12:03 | NUR ---
O2 IN 90% ON BIPAP 100%. BREATHING EVEN/UNLABORED. WILL CONTINIUE TO MONITOR.
--- NOTE | 2020-05-25 14:44 | NUR ---
@BEDSIDE D/T NOTICING PT TUGGING ON BIPAP TUBING. PT ABLE TO REACH RESTRAINED HAND WHEN SLIDING DOWN BED. PT READJUSTED IN BED.
--- NOTE | 2020-05-25 14:57 | NUR ---
PT PULLED ON BIPAP TUBING AGAIN. 2ND WRIST RESTRAINED, PT UNABLE TO GET TO TUBING WITH LEFT HAND IN CURRENT POSITION. AWARE.
--- NOTE | 2020-05-25 17:01 | NUR ---
NOTIFIED THAT PT REPEATEDLY TRIES TO REMOVE BIPAP. RBVTO TO TRY HIGH FLOW NC @15L. PT IMMEDIATELY DESAT TO 88% AND SLOWLY CONTINUES TO DROP; WAS PLACED BACK ON BIPAP; SLOW TO RECOVER.
--- NOTE | 2020-05-25 19:15 | NUR ---
PT RESTLESS, RUBBING HEAD BACK AND FORTH IN ORDER TO TAKE OF BIPAP MASK. Judit ORELLANA RN MEDICATES PT W/ MORPHINE 2MG IV FOR RESPIRATORY DISTRESS AND RESTLESSMESS. REPORT RECEIVED FROM Judit BELLA RN OUTSIDE OF ROOM WITH PT IN VIEW. CARE OF PT ASSUMED AT THIS TIME.
--- NOTE | 2020-05-25 19:45 | NUR ---
PT CALMER, APPEARS COMFORTALE AND IN LESS DISTRESS, SPO2 97%. CALL RECEIVED FROM DR. DIAS FOR UPDATE ON PTS STATUS, DR. DIAS UPDATED ON PTS RESTLESSNESS AND IMPROVEMENT WITH DOSE OF MORPHINE. CALL PASSED TO Rhianna BARNETT RT PER DR. PADILLA REQUEST. NO NEW ORDERS RECEIVED. CONSULTED W/ Rhianna DEUTSCH, AT THIS TIME PLAN IS TO CON'T TO MONITOR RESPIRATORY STATUS AND EVALUATE NEED FOR INTUBATION IF RESPIRATORY STATUS WORSENS. CON'T TO MEDICATED FOR RESTLESSNES PRN.
--- NOTE | 2020-05-25 20:00 | NUR ---
PHYSICAL ASSESMENT COMPLETED AT THIS TIME. PT IN NO APPARENT DISTRESS. DROWSY BUT EASILY ROUSABLE. REPOSITIONED FOR COMFORT. CALL WARD WITHIN REACH, AGREES TO CALL PRN, WILL CON'T TO MONITOR.
--- NOTE | 2020-05-25 21:00 | NUR ---
SCHEDULED MEDS ADMINISTERED, SEE E-MAR.
--- NOTE | 2020-05-25 23:55 | NUR ---
PT ABLE TO DISCONNECT BIPAP BY TURNING HIS HEAD BACK AND FORTH, DESAT TO SPO2 70% IMMEDIATELY. BIPAP RECONNECTED, SPO2 INCREASES BACK TO 99% QUICKLY. PT REORIENTED AND INSTRUCTED TO KEEP BIPAP ON. PT AGREES. WILL NEED FREQUENT RE-ENFORCEMENT.
[2020-05-26] VITALS (17 sets, daily range): BP systolic 100–174; BP diastolic 60–108
--- NOTE | 2020-05-26 02:00 | NUR ---
PT APPEARS TO BE SLEEPING COMFORTABLY, NO APPARENT DISTRESS. RESPIRATIONS REGULAR AND UNLABORED. PT TURNED AND REPOSITIONED FOR COMFORT.
--- NOTE | 2020-05-26 04:00 | NUR ---
PT APPEARS TO BE SLEEPING COMFORTABLY, NO APPARENT DISTRESS. RESPIRATIONS REGULAR AND UNLABORED. PT TURNED AND REPOSITIONED FOR COMFORT.
--- NOTE | 2020-05-26 05:45 | NUR ---
AM LABS DRAWN AND ASENT TO LAB, PT REPOSITIONED FOR COMFORT, FREGOSO EMPTIED OF 600ML CLEAR YELLOW URINE. NO BM THIS SHIFT.
[2020-05-26 06:13] LABS: HEMATOCRIT 46.7 % (39.0-50.0); HEMOGLOBIN 15.3 g/dl (14.0-18.0); IMMATURE GRANULOCYTES 2.8 % (0.0-5.0); MEAN CELL VOLUME 96.7 fL CALC (80.0-100.0); MEAN CORPUSCULAR HGB 31.7 pG CALC (26.0-32.0); MEAN CORPUSCULAR HGB CONC 32.8 g/dL CAL (32.0-36.0); NEUT# 20.41 thou/uL (1.82-7.42); RED BLOOD COUNT 4.83 mill/uL (4.70-6.10)
[2020-05-26 06:21] LABS: ALBUMIN 2.3 g/dL (3.2-5.0); ALKALINE PHOSPHATASE 102 u/l (38-126); ANION GAP 7 (6-22 (CALC)); BILIRUBIN, TOTAL 1.1 mg/dL (0.0-1.4); BUN 29 mg/dL (8-23); BUN/CREATININE RATIO 28 (12-20 (CALC)); CARBON DIOXIDE 27 mmol/l (22-30); CHLORIDE 110 mmol/l (95-108); GFR > 60 ML/MIN (>=60 (CALC)); GFR FOR AFR.AMER. > 60 ML/MIN (>=60 (CALC)); SGOT/AST 24 u/l (19-48); SODIUM 140 mmol/l (137-146); TOTAL PROTEIN 5.1 g/dL (6.3-8.2)
[2020-05-26 06:35] LABS: C-REACTIVE PROTEIN 16.1 mg/dL (0-0.9)
--- NOTE | 2020-05-26 06:45 | NUR ---
RECVD REPORT FROM OSVALDO RODRIGUEZ @START OF SHIFT. PT RESTING IN BED. VSS. WILL CONTINUE TO MONITOR.
--- NOTE | 2020-05-26 07:45 | NUR ---
STAFF AT BEDSIDE AFTER WITNESSING PT BEND HIS HEAD DOWN TO MET HIS HANDS AND PULL THE BIPAP TUBING OFF MASK.
--- NOTE | 2020-05-26 08:30 | NUR ---
@BEDSIDE TO REATTACH PTS BIPAP TUBING TO MASK AFTER PT DISCONNECTED IT. RESTRAINTS SECURED. HOB LOWERED. O2 FELL TO 59%, FACE & LIPS BLUE WITHIN SECONDS.
--- NOTE | 2020-05-26 09:06 | NUR ---
DR ROSE @BEDSIDE FOR ASSESSMENT. PT FOLLOWING COMMANDS, SQUEEZING CORRECT HAND ON COMMAND. WHEN ASKED IF PT WANTED TO , HE SHAKED HIS HEAD NO BUT DOES WANT TO BE INTUBATED IF HE STOPS BREATHING.
--- NOTE | 2020-05-26 11:19 | NUR ---
PT RESTING IN BED. VSS. WILL CONTINUE TO MONITOR.
--- NOTE | 2020-05-26 12:34 | NUR ---
@BEDSIDE FOR MEDICATION. ON THE WAY OUT OF ROOM, PT REACHED FOR THIS HAND; STOOD THERE & HELD PTS HAND UNTIL HE RELEASE IT.
--- NOTE | 2020-05-26 13:50 | NUR ---
PT RESTING IN BED. VSS. WILL CONTINUE TO MONITOR.
--- NOTE | 2020-05-26 17:34 | NUR ---
@BEDSIDE TO OFFER PT DRINK, NO ANSWER FROM PT.
--- NOTE | 2020-05-26 19:05 | NUR ---
RECEIVED REPORT. BEDRESTING. ON C.PAP WITH IV FLUIDS INFUSING RX. FREGOSO TO BSD-STRAW COLORED. ON AIRBORNE PRECAUTIONS. NO DISTRESS NOTED
--- NOTE | 2020-05-26 20:00 | NUR ---
BEDRESTING. CONTINUES TO MOVE AND FIGET. RESTLESS. WILL CONTINUE WITH RESTRAINTS TO PROTECT PATIENT FROM PULLING EQUIPMENT
--- NOTE | 2020-05-26 21:53 | NUR ---
EXTREMELY RESTLESS. MOVING ABOUT. C/O GENERALIZED DISCOMFORT. MORPHINE GIVEN. HAS SETTLED AT THIS TIME AND IS ALLOWING C.PAP MAX BENEFIT
--- NOTE | 2020-05-26 22:55 | NUR ---
RESTING QUIETLY. TV AND LIGHTS OFF. NO DISTRESS NOTED AT THIS TIME
[2020-05-27] VITALS (20 sets, daily range): BP systolic 129–183; BP diastolic 77–117
--- NOTE | 2020-05-27 00:07 | NUR ---
BEDRESTING. CONTINUE AIRBORNE PRECAUTIONS. ON C.PAP IN NEGATIVE PRESSURE ROOM
--- NOTE | 2020-05-27 02:14 | NUR ---
READILY ARROUSES WITH VERBAL STIMULI, BUT ALLOWING C.PAP TO FUNCTION. REMAINS ON AIRBORNE PRECAUTIONS IN NEGATIVE PRESSURE ROOM.
--- NOTE | 2020-05-27 04:02 | NUR ---
BEDRESTING. RESPIRATIONS EVEN AND NONLABORED. NO DISTRESS NOTED
--- NOTE | 2020-05-27 06:04 | NUR ---
ALERT. MORE RESTLESS-MOVING ABOUT WITH VS INCREASING PAST COUPLE OF HOURS. MORPHINE GIVEN FOR GENERALIZED PAIN. RESP EVEN AND NONLABORED GIVEN B.PAP WHICH PT APPEARS TO BE TOLERATING.
--- NOTE | 2020-05-27 07:12 | NUR ---
REPORT GIVEN TO YADI RILEY
--- NOTE | 2020-05-27 07:30 | NUR ---
pt resting in bed with eyes closed; no apparent distress noted; assessment completed at this time; pt arousable to verbal stimuli; nonverbal with this conventional underwriter at this time; no s/sx of pain noted; no n/v noted; resp even and unlabored; lungs clear/ diminished post bases; skin color wnl; bipap intact with settings of 16/8, 100% FiO2; nonprofit director cough noted; hr reg; strong pulses; no edema noted; abd soft with bs present; no bm noted per conventional underwriter; park to gravity draining clear yellow urine; cath strap intact; #20 patent to [facility] ivf infusing without complication; no redness or edema noted at site; bilat restraints released and reapplied for nursing care; repositioned; will continue to monitor closely
--- NOTE | 2020-05-27 08:50 | NUR ---
Dr Keane present at bedside to assess pt and discuss plan of care
--- NOTE | 2020-05-27 09:13 | NUR ---
writer technical publications at bedside attempting to feed pt; pt refusing food/liquids and meds; will continue to monitor
--- NOTE | 2020-05-27 09:15 | NUR ---
Dr Keane informed per this adjusto writer operator of tachycardia and hypertension; orders received
--- NOTE | 2020-05-27 10:20 | NUR ---
resting in bed with eyes closed; no apparent distress noted; restraints released and reapplied; repositioned for comfort; bipap intact and maintained; st on monitor; call light within reach; will continue to monitor
--- NOTE | 2020-05-27 11:50 | NUR ---
resting in bed with eyes closed; easily aroused; no apparent distress noted; iv intact and patent; no redness or edema noted at site; st on monitor; bp elevated; labetalol administered slowly as per orders; park to gravity; bipap intact and maintained; repositioned; restraints intact; will continue to monitor
--- NOTE | 2020-05-27 13:39 | NUR ---
pt was seen for passive ROM of BLE.
--- NOTE | 2020-05-27 14:00 | NUR ---
awake; slightly anxious; pulling at restraints; iv intact; st on monitor; park to gravbity; medicated with ativan as per orders; will continue to monitor
--- NOTE | 2020-05-27 15:45 | NUR ---
staff x2 at bedside for bath and linen change; released from restraints; pt promptly removed bipap mask; commercial insurance underwriter attempting oral care with toothette; tongue noted discolored and very dry/hard; speech/cough very hoarse; lip balm applied; pt continues to refuse po fluids; complete bed bath given; complete linen change; park to gravity; catheter care administered; st on monitor; #22 started to lh x1 attempt; fluids resumed; #20 removed from rac with catheter tip intact; no redness or edema noted at site; restraints reapplied; bipap continued; will continue to monitor
--- NOTE | 2020-05-27 18:07 | NUR ---
awake in bed; po fluids offered and declined; orcal care with toothette; bipap intact and maintained; iv patent; fluids infusing without complication; no redness or edema noted at site; st on monitor; restraints continued; repositioned
--- NOTE | 2020-05-27 19:00 | NUR ---
RECEIVED REPORT. BEDRESTING. IV FLUIDS INFUSING RX
--- NOTE | 2020-05-27 20:55 | NUR ---
RESTLESS IF IN PAIN. MORPHINE GIVEN FOR COMFORT. BEDRESTING RESTRAINTS REMAIN IN USE TO PROTECT PT FROM HIMSELF
--- NOTE | 2020-05-27 23:10 | NUR ---
BEDRESTING. MOVES ABOUT IN BED. MOVES ALL EXTREMITIES. RESTRAINTS IN PLACE TO KEEP PT FROM PULLING LINES. RESPIRATIONS SHALLOW ALLOWING MAXIMUN BENEFIT OG B PAP
[2020-05-28] VITALS (23 sets, daily range): BP systolic 86–158; BP diastolic 66–95
--- NOTE | 2020-05-28 00:13 | NUR ---
BEDRESTING. TOLERATING IV MEDICATION WELL-NO ADVERSE EFFECTS. OPENS EYES TO VERBAL STIMULI. NONVERBAL AT THIS TIME WILL SHAKE HEAD TO ANSWER. NO ORAL INTAKE. IV FLUIDS INFUSING RX
--- NOTE | 2020-05-28 02:00 | NUR ---
PERIODIC COUGH. NO DISTRESS. CONTINUES ON BIPAP IN NEGATIVE PRESSURE ROOM ON AIRBORNE PRECAUTIONS
--- NOTE | 2020-05-28 03:27 | NUR ---
INCREASINGLY RESTLESS. ATIVAN GIVEN AFTER AM CARE
--- NOTE | 2020-05-28 03:49 | NUR ---
BLOOD DRAWN AND TO LAB. TOLERATED BATH AND ORAL CARE WELL. LOTIN TO SKIN AND FIRM BACK RUB PROVIDED WITH BARRIER CREAM TO RECTAL REGION. EYES TEARING AT INTERVALS
--- NOTE | 2020-05-28 04:42 | NUR ---
RESTLESS EVEN AFTER ATIVAN AND O2 SAT 90 AND 91% ON RIGHT SIDE. THEREFORE, WILL GIVE MORPHINE FOR PAIN RELIEF TO HELP REDUCE S/S OF PAIN
[2020-05-28 04:58] LABS: HEMATOCRIT 45.7 % (39.0-50.0); HEMOGLOBIN 14.6 g/dl (14.0-18.0); IMMATURE GRANULOCYTES 2.6 % (0.0-5.0); MEAN CELL VOLUME 100.7 fL CALC (80.0-100.0); MEAN CORPUSCULAR HGB 32.2 pG CALC (26.0-32.0); MEAN CORPUSCULAR HGB CONC 31.9 g/dL CAL (32.0-36.0); PLATELET COUNT 308 thou/uL (130-400); RED BLOOD COUNT 4.54 mill/uL (4.70-6.10); RED CELL DISTRI WIDTH 14.5 % (11.5-15.5)
[2020-05-28 05:05] LABS: MANUAL DIFFERENTIAL YES
[2020-05-28 05:29] LABS: ALBUMIN 2.2 g/dL (3.2-5.0); ALKALINE PHOSPHATASE 103 u/l (38-126); ANION GAP 7 (6-22 (CALC)); BILIRUBIN, TOTAL 0.9 mg/dL (0.0-1.4); BUN 19 mg/dL (8-23); BUN/CREATININE RATIO 19 (12-20 (CALC)); CARBON DIOXIDE 31 mmol/l (22-30); CHLORIDE 112 mmol/l (95-108); GFR > 60 ML/MIN (>=60 (CALC)); GFR FOR AFR.AMER. > 60 ML/MIN (>=60 (CALC)); POTASSIUM 4.2 mmol/l (3.5-5.1); SGOT/AST 35 u/l (19-48); SODIUM 145 mmol/l (137-146)
--- NOTE | 2020-05-28 05:30 | NUR ---
LITTLE EFFECT OF ATIVAN BUT MORPHINE MORE EFFECTIVE TO SETTLE PATIENT
[2020-05-28 06:05] LABS: C-REACTIVE PROTEIN 34.4 mg/dL (0-0.9)
--- NOTE | 2020-05-28 06:10 | NUR ---
BEDRESTING. PCXR COMPLATED, WBC ELEVATED
--- NOTE | 2020-05-28 07:00 | NUR ---
REPORT GIVEN . BEDRESTING
--- NOTE | 2020-05-28 07:16 | NUR ---
tHE PATIENT IS RESTING COMFORTABLY, NO RESTLESSNESS. ON THE BIPAP, ASSESSMENT COMPLETE.
--- NOTE | 2020-05-28 08:08 | NUR ---
THE DOCOTOR WENT INTO EXAMINE THE PATIENT. THE PATIENT REFUSES TO BE INTUBATED. THE DOCOTR WILL SPEAK TO THE FAMILY TODAY ABOUT HIS PLAN OF CARE.
--- NOTE | 2020-05-28 08:30 | NUR ---
DR. DIAS ON PHONE WITH PT'S BROTHER NIKIA TO DISCUSS PLAN OF CARE DUE TO PT DECLINE IN CONDITION; BROTHER WANTS INTUBATION.
--- NOTE | 2020-05-28 08:39 | NUR ---
THE PATIENT IS TO BE INTUBATED AND TRANSFERRED TO [facility] IF A BED IS AVAILABLE.
--- NOTE | 2020-05-28 08:47 | NUR ---
DR. HANSON AT BEDSIDE FOR INTUBATION.
--- NOTE | 2020-05-28 08:55 | NUR ---
TRANSFER TO [facility] INITIATED; SPOKE WITH TRANSFER CENTER; FACE SHEET AND COVID RESULTS FAXED.
--- NOTE | 2020-05-28 09:13 | NUR ---
INTUBATION AND CENTRAL LINE PLACEMENT COMPLETE. PROPOFOL DRIP INITIATED.
--- NOTE | 2020-05-28 09:20 | NUR ---
RADIOLOGY AT BEDSIDE FOR CHEST XR.
--- NOTE | 2020-05-28 09:44 | NUR ---
NG TUBE RIGHT NARES TO LOW SUCTION
--- NOTE | 2020-05-28 09:47 | NUR ---
DR. DIAS SPOKE WITH [facility] SENIOR SECURITY ANALYST DR. GILMORE WHO ACCEPTED PATIENT.
--- NOTE | 2020-05-28 09:49 | NUR ---
ENRRIQUE FROM [facility] TRANSFER CENTER WILL NOTIFY WHEN AN ICU BED IS AVAILABLE.
--- NOTE | 2020-05-28 09:53 | NUR ---
PT INTUBATED WITH 7.5 ET TUBE SECURED 22 @ LIP BY ON FIRST ATTEMPT AT 08:58. PLACEMENT VERIFIED BY ETCO2 AND XRAY. PT PLACED ON VENT WITH ORDERED SETTINGS. ABG OREDED FOR ONE HR.
--- NOTE | 2020-05-28 10:45 | NUR ---
THE PATIENT IS WAITING FOR TRANSFER TO [facility].
--- NOTE | 2020-05-28 11:25 | NUR ---
BED ASSIGNMENT RECEIVED FROM [facility] TRANSF[facility]; 5B BED #2. NUMBER TO CALL REPORT [phone]. SPOKE WITH MALINA AT [facility]; ETA 30 MINUTES.
--- NOTE | 2020-05-28 11:52 | NUR ---
[facility] AT BEDSIDE FOR TRANSPORT.
--- NOTE | 2020-05-28 11:53 | NUR ---
REPORT GIVEN TO IRENE AT [facility]
--- NOTE | 2020-05-28 11:55 | NUR ---
brother Alek Cartagena called per this public relations writer; updated on transfer to [facility] as of now
--- NOTE | 2020-05-28 12:09 | NUR ---
pt fully awake; working against vent; resp 32; ativan 1mg ivp given; diprivan gtt titrated
--- NOTE | 2020-05-28 12:24 | NUR ---
PT TRANSPORTED OFF UNIT VIA STRETCHER WITH [facility] TO [facility] IN STABLE CONDITION.
--- NOTE | 2020-05-28 15:30 | NUR ---
spoke with Lilian this morning. Therapy is on hold per Lilian
== END 2020-05-28 12:24 | disposition short-term general hospital (02) | DRG 208 ==
LOC: ED 16:31 → ED-I 18:40 → ED 18:54 → ED-I 18:55 → ICU 18:55
PROVIDERS: Family Medicine; ADMIT Internal Medicine; ATTEND Internal Medicine
PROC: 5A09457 Assistance with Respiratory Ventilation, 24-96 Consecutive Hours, Continuous Positive Airway Pressure (ICD-10-PCS; 2020-05-20)
PROC: 0BH17EZ Insertion of Endotracheal Airway into Trachea, Via Natural or Artificial Opening (ICD-10-PCS; principal; 2020-05-28)
PROC: 5A1935Z Respiratory Ventilation, Less than 24 Consecutive Hours (ICD-10-PCS; 2020-05-28)
PROC: 06HY33Z Insertion of Infusion Device into Lower Vein, Percutaneous Approach (ICD-10-PCS; 2020-05-28)
DX: U07.1 COVID-19 (principal); J12.89 Other viral pneumonia; J96.01 Acute respiratory failure with hypoxia; I63.89 Other cerebral infarction; J69.0 Pneumonitis due to inhalation of food and vomit; G81.91 Hemiplegia, unspecified affecting right dominant side; G93.49 Other encephalopathy; R29.810 Facial weakness; I12.9 Hypertensive chronic kidney disease with stage 1 through stage 4 chronic kidney disease, or unspecified chronic kidney disease; N18.3 Chronic kidney disease, stage 3 (moderate); F79 Unspecified intellectual disabilities; I69.998 Other sequelae following unspecified cerebrovascular disease; Z87.891 Personal history of nicotine dependence; Z78.1 Physical restraint status
CPT/HCPCS: J0131; J0692; J1650; J1953; J2060; Q9967